=== PATIENT | male | born 1995 | race Caucasian/White ===

== ENCOUNTER 2017-03-21 02:29 | Inpatient (IN) | payer OTHER ==
[~2017-03-21] VITALS: Ht 180.3 cm; Wt 77.1 kg
[~2017-03-21 02:29] MED LIST: CHOL10005 PO; MIRT-17 PO; MULT-1379 PO; NIC10R INH; OMEG1CAP35 PO; VENL75CA58 PO
[2017-03-21] MEDS ORDERED: ACETAMINOPHEN 325 MG TAB PO PRN (03:05)
[2017-03-21] MEDS ORDERED: MAG HYD/AL HYD/SIMETH 30ML UDC PO PRN (03:05)
[2017-03-21 03:38] VITALS: BP 133/92
[2017-03-21] MEDS: MULTIVITAMINS TAB PO SCH (08:14)
--- NOTE | 2017-03-21 12:18 | BHS - Psychiatric Evaluation ---
ER - Title 25 MHE Evaluation Title 25 Evaluation Patient Detained By: Physician (Dr. Harris), Law Enforcement (Kacy Horne) Referral Source: Professional: Law Enforcement and Physician Date Patient Detained: Mar 21, 2017 Time Patient Detained: 00:00 Date Nursing Home Expires: Mar 25, 2017 Time Nursing Home Expires: 00:00 Legal Status: Police Hold: No Legal Status: Residence: County Resident, State Resident Assessment Data Provided By: Patient, Law Enforcement (), Other Source HPI/ROS: From ER Dr. Harris, "21-year-old male with a past medical history of suicidal ideations. Presents to the emergency Department per law enforcement for suicidal ideations. He was stating to his girlfriend that he wanted to go to [place] and get a gun and kill himself. He also had texted her the same message. The police read the text and he definitely has a plan with intent." Admit due to SI or Attempt: Yes Suicide Plan: Has Plan w/out Access Current Suicide Plan Says he plans to try to get a gun from a 3rd republican seller, since he believes he may be prohibited from getting a gun easily. "I will get a gun from someone who doesn't do background checks." Alcohol or Drugs Involved: No Is Patient Info Reliable: Yes (Patient indicates he is still suicdial, "Says I would not try to kill myself in here ([facility]) but will get a gun from a third republican seller.") Is Collateral Info Reliable: Yes () Current Home Psych Meds: Reports none Mental Status Exam General Appearance: Casual, Well Groomed, Good Eye Contact, Cooperative Speech: Clear, Spontaneous, Normal Rate, Other ([id number] when speaking about his suicidal plan.) Mood: Other (No apparent emotion.) Affect: Flat (Extremely flat or laughs ) Thought Process: Organized, Logical, Goal Directed Thought Content: Suicidal Ideation (All family and friends know he tries to obtain a gun to kill himself.) Sensorium: Clear Cognition: Alert & Oriented-Person Memory: Immediate, Recent, Remote Insight Judgment: Poor Hallucinations: Denies Delusions: Denies Current Risk & History Current Dangerous Risk Assessm: Current Suicide Ideation Past Dangerous Risk Assessm: Suicide Ideation-last 6mo (Was hospitalized in December 2016) Sequelae of Substance Abuse: Patient says he has used LSD and other drugs such as cannabis and marijuana infrequently. Previous Suicide Attempt: Past - Low Lethality Number of Attempts/Description At least two attempts, one by mixing prescription medications and alcohol, and another by drinking another mold sheet cleaner and bleach. Previous Psychiatric Illness: Yes (Hospitalized at [facility] for suicidal plan) Previous Psychiatric Treatment: Yes Risk Assessment & Disposition Evaluated Risk Assessment: Patient mother and family have all heard him express suicidal plans. Patient mother has heard him say he hates his job, she says, "because of that I worry if he might try to hurt people at his job ([employer]) or he has said he will turn off his car lights and drive until he hits someone else," in a fatal accident. Patient has no outpatient clinical support and his mother, brother, and workplace client service and consulting manager all experience him as highly suicidal. As well patient says he plans to kill himself. Meets Mental Illness Req.: Yes Meets Dangerousness Req.: Yes Emergency Nursing Home to be: Upheld Decision Comment: Patient mother and family have all heard him express suicidal plans. Patient mother has heard him say he hates his job, she says, "because of that I worry if he might try to hurt people at his job ([employer]) or he has said he will turn off his car lights and drive until he hits someone else," in a fatal accident. Patient has no outpatient clinical support and his mother, brother, and workplace client service and consulting manager all experience him as highly suicidal. As well patient says he plans to kill himself. Patient says he is intent on killing himself. He has texted family members while in the ER saying once he is released from [facility] he will kill himself. Date of Decision: Mar 21, 2017 Time of Decision: 12:24 Patient is Medically Stable at: Yes Disposition: [facility] DENNYS ARELLANO LPC Mar 21, 2017 12:18
[2017-03-21] MEDS ORDERED: OLANZapine 10 MG VIAL IM ONLY PRN (12:40)
[2017-03-21] MEDS ORDERED: WATER STERILE 10 ML VIAL IM ONLY PRN (12:40)
[2017-03-21] MEDS ORDERED: diphenhydrAMINE 50 MG/ML VIAL IM PRN (12:40)
[2017-03-21] MEDS ORDERED: LORazepam 2 MG/ML VIAL IM PRN (12:40)
[2017-03-21] MEDS ORDERED: WATER STERILE 10 ML VIAL IVP PRN (12:40)
[2017-03-21 12:55] VITALS: BP 130/81
[2017-03-21] MEDS ORDERED: INFLUENZA VIRUS VAC 0.5 ML SYR IM ONLY ONE (15:15)
[2017-03-21 22:06] VITALS: BP 121/73
[2017-03-22 06:17] VITALS: BP 121/67
[2017-03-22] MEDS: MULTIVITAMINS TAB PO SCH (08:27)
--- NOTE | 2017-03-22 11:00 | BHS Progress Note ---
BHS - Subjective Progress Notes Subjective Patient smiling, while talking of dark subject manner, including suicide. Patient interacting in a manner consistent with personality disorder with strong borderline traits. Patient cynical and sarcastic. Argumentative with this provider, apparently for the sake of arguing, "I don't need saving" "I am fine". "I am not depressed" "I am pissed, that is all." Will plan for 10 day hearing. Patient reading borderline criteria, and stating he fits all of them except one. Patient stating "You are a terrible doctor", and patient states he would exit, and likely remain the same, concerning his suicidality. Suicidal Ideation: Ongoing Homicidal Ideation: None BHS - Objective Physical Exam Vital Signs Vital Signs Date Time Temp Pulse Resp B/P (MAP) Pulse Ox O2 Delivery O2 Flow Rate FiO2 03/22/17 06:17 99.9 83 16 121/67 (85) 96 Room Air Muscle Strength and Tone: WNL Gait and Station: Steady BHS Medications Reviewed: Side Effects, Benefits of Medication, Risks Allergies Reviewed: Yes Mental Status Exam General Appearance: Casual, Well Groomed, Good Eye Contact, Cooperative, No Psychomotor Agitation (minimal) Speech: Clear, Spontaneous, Normal Rate, Normal Rhythm, Normal Volume, Normal Tone, Other ([id number] when speaking about his suicidal plan.) Mood: Dysthmic/Depressed (mood low with incongruent affect, ) Affect: Full and Appropriate (incongruent affect. ), Flat (Extremely flat or laughs ) Thought Process: Organized, Logical, Goal Directed, No Loose Associations, No Flight of Ideas Thought Content: Suicidal Ideation (All family and friends know he tries to obtain a gun to kill himself. "western culture is afraid of "), No Homicidal Ideation, No Delusions, No Auditory Halllucinations, No Visual Hallucinations, No Thought Broadcasting, No Ideas of Reference, No Obsessions, No Compulsions Sensorium: Clear Cognition: Alert & Oriented-Person, Alert & Oriented-Place, Alert & Oriented- Time, Njnpm-Nnoejhiz-Apphqhiml Memory: Immediate, Recent, Remote Intelligence: Average Insight Judgment: Poor BHS Assessment and Plan BHS Plan: Necessary Precautions, Individual/Group Therapy, Admin/Titrate Meds, Educate Patient Tobacco Medications: Not Appropriate Condition Problems: (1) Borderline personality disorder Status: Chronic Assessment & Plan: provisional diagnosis. (2) Persistent depressive disorder Condition 1. continue treatment. 2. 10 day hearing to be scheduled. MANUEL ESTEVES MD Mar 22, 2017 11:00
--- NOTE | 2017-03-22 11:35 | BHS - Psychiatric Evaluation ---
Title 25 Evaluation Hearing Report: 109 Date of Report: Mar 22, 2017 Examiner: Myah Arellano [facility] Patient Detained By: Physician (Dr. Harris), Law Enforcement (Kacy Horne) 24hr Mental Health Eval By: Myah Arellano M[facility] L[facility] Date Patient Detained: Mar 21, 2017 Time Patient Detained: 00:00 Date Senior Care Expires: Mar 25, 2017 Time Senior Care Expires: 00:00 Legal Status: Police Hold: No Legal Status: Relationship: Single Legal Status: Residence: [facility] Resident, State Resident Referral Source: Professional: Law Enforcement and Physician Assessment Data Provided By: Patient, Law Enforcement (), Other Source Chief Complaint: Patient continues to express suicidal plan and says he does not value his life, and believes western culture overvalues life and fears . He says he plans to buy a gun from a third green party seller to end his life. HPI/ROS: From ER Dr. Harris, "21-year-old male with a past medical history of suicidal ideations. Presents to the emergency Department per law enforcement for suicidal ideations. He was stating to his girlfriend that he wanted to go to [place] and get a gun and kill himself. He also had texted her the same message. The police read the text and he definitely has a plan with intent." Reliability of Pt-Evidenced By Patient is a reliable historian, says he will kill himself upon release. Current Dangerous Risk Assess: Current Suicide Ideation (Patient says he will kill himself with a gun. This is his most durable plan. Patient mother says she fears he may harm others at his job or driving if he attempts at work on the highway, as he has indicated.) Current Risk Summary: Patient mother and family have all heard him express suicidal plans. Patient mother has heard him say he hates his job, she says, "because of that I worry if he might try to hurt people at his job ([employer]) or he has said he will turn off his car lights and drive until he hits someone else," in a fatal accident. Patient has no outpatient clinical support and his mother, brother, and workplace care transitions manager all experience him as highly suicidal. As well patient says he plans to kill himself. Patient says he is intent on killing himself. He has texted family members while in the ER saying once he is released from [facility] he will kill himself. He says he is wanting to go through "a third green party seller " and obtain a gun to kill himself. He sees no outpatient therapist. He says he would like to lose his job, and believes if he killed his girlfriend would be better off without him. Past Dangerous Risk Assess: Suicide Ideation-last 6mo (Was hospitalized in December 2016) [facility] - Exam Physical Exam Vital Signs Vital Signs 03/22/17 06:17 Temp 99.9 Pulse 83 Resp 16 B/P (MAP) 121/67 (85) Pulse Ox 96 O2 Delivery Room Air Mental Status Exam General Appearance: Casual, Well Groomed, Good Eye Contact, Cooperative Speech: Clear, Spontaneous, Normal Rate, Other (Usshrk-ij-[id number] when speaking about his suicidal plan.) Mood: Other (No apparent emotion.) Affect: Flat (Extremely flat or smiles inappropriately.) Thought Process: Organized, Logical, Goal Directed Thought Content: Suicidal Ideation (All family and friends know he tries to obtain a gun to kill himself.) Sensorium: Clear Cognition: Alert & Oriented-Person Memory: Immediate, Recent, Remote Insight Judgment: Poor Title 25 History Psychiatric History: Per Dr. Navarro from patient electronic record and [facility] stay in December 2016, "When asked about depressive symptoms, patient reported "the smallest things happen and I get depressed." He gives an example of at work at [employer] accidentally dropping a jar of liquid and having to clean it up on the floor. When asked about specific depressive symptoms patient reports he has probably lost some weight, mainly because he does not eat right. He does report some guilt and remorse about stressing the family when he verbalizes his suicidal thoughts to them. Patient reports his energy is down. Concentration remains okay. Continues to have interest in video games. Patient reports he does not think he snores a lot and does not think he has sleep apnea, which was later ruled out on the unit. He does report nightmares at times, nonspecific in nature and not related to actual events, and he currently reports his mood is an 8/10 during initial interview with 10 being good. Regarding symptoms of amari, patient denies any symptoms that would constitute a manic episode. In regard to poor sleep in the past he reports that he and his friends have tried to stay up late in the past intentionally. Patient reports he can be a worrywart at times, but he does not seem to be suffering from primary anxiety disorder. He denies any periods of psychosis, panic attacks, PTSD. Patient does not like being around large bodies of water, but it falls short of a phobia. Denies anorexia, bulimia or OCD behavior, and patient reports he used to cut on his legs and chest as a form of "punishment." He quit that upon exiting high school. Patient now reports burning himself with cigarettes a few days ago prior to admission for the same reason. Patient admits to somatization symptoms in the form of diarrhea and stomach pains when he gets under stress. Patient reports being an inpatient briefly in [facility] for psychiatric concerns briefly in the past. He has tried outpatient treatment now three times, and the patient reports it has not been helpful in the patient and he is verbalizing that he does not expect it will be helpful now. Patient seems to not have much interest in pursuing mental health treatment on his own accord, but allows it to weigh heavily on his friends and family." Family Psychiatric Hx: Patients said his brother has suffered from depression as well and his age is 21. This is a half brother. Patient does not know his biological father's side of the family. Social History: Per Dr. Navarro from patient electronic record and [facility] stay in December2016, "Patient was born in [place], raised there. Parents were not together at the time of his . Stepfather entered the picture in about 2011. Patient reports he can kind of be a "rosina." Patient has one half sibling who is two years older. Patient himself states he graduated from high school, has never been in the . He has been in what the patient reports as a two-year relationship with significant other. They live together and are planning on a wedding in the next one to two years. The patient has been working at night in [employer] since July. He is somewhat disinterested in his job overall. The patient denies any outright extensive abuse or neglect when growing up, but says he witnessed a lot of fighting where his mother was crying a lot when he was young." Prior Hospitalizations: Patient was last hospitalized at [facility] in December of this year. Patient reports being in inpatient briefly in [facility] for psychiatric concerns briefly in the past. Drug & Alcohol Use: Patient reports using some substances including marijuana in school. Drinks energy drinks at times. Denies any substance use now. Acknowledges LSD use in the past. Current Living Situation: Patient lives in [place], and worries about his rent being late. He reports living on limited finances. Current Support System: Patient mother, "brother," and girl friend all express care for patient, and concern about his safety. Education: Patient himself states he graduated from high school, has never been in the . Patient Strengths: Patient enjoys interpersonal interaction. It is expressed in high level of argumentation that he prolongs. Relevant Medications: Patient discontinued psychotropics after one week of use prescribed to him for mood stabilization the last time he was hospitalized in December of this year. Assessment and Plan Course of Care: Course of care will be consistent with providing a secure environment for a destabilized patient. He will be provided with intensive assessment, therapy, and case management. Diagnostic Impressions: Persisting depressive disorder. Dependent and borderline personality traits. Rule out personality disorder. Social stressors associated with illness. Assessment and Plan: This is a 21-year-old male patient demonstrates both dependent and borderline personality traits to a high degree. These maladaptive coping mechanisms combined with persistent depressive mood and suicidal plans create a resistance to treatment and an entrenched difficulty in accepting support. All efforts will be made to stabilize patient and create a different plan than patient's stated intention, "to leave and do it (take his life)." Risk Formulation: The patient "evidences a substantial probability of physical harm to self as manifested by evidence of recent threats of/or attempts at suicide or serious bodily harm" as evidenced by:Patient mother and family have all heard him express suicidal plans. Patient mother has heard him say he hates his job, she says, "because of that I worry if he might try to hurt people at his job ( [employer]) or he has said he will turn off his car lights and drive until he hits someone else," in a fatal accident. Patient has no outpatient clinical support and his mother, brother, and workplace care transitions manager all experience him as highly suicidal. As well, patient says he plans to kill himself. Patient says he is intent on killing himself. He has texted family members while in the ER saying once he is released from [facility] he will kill himself. He says he is wanting to go through "a third green party seller" and obtain a gun to kill himself. He sees no outpatient therapist. He says he would like to lose his job, and believes if he killed his girlfriend would be better off without him. Patient mother says he has a long history of suicide attempts. She says his ideation has worsened and she is most concerned because he no longer expresses them to her. She worries he is keeping them to himself and reaching out for support less and less. Recommendations of [facility] Team: It is therefore recommended by the Behavioral Health Services Team:Patient, Geraldo Reagan, stay the full duration of his 72 hour hold and may additionally recommend up to 10 days for stabilization at [facility]/COUNTS INCLUDE 234 BEDS AT THE [facility]. , MYAH ARELLANO HAND TIER Mar 22, 2017 10:54
[2017-03-22 13:42] VITALS: BP 128/80
[2017-03-22] MEDS: VENLAFAXINE XR 75 MG CAPCR PO SCH (13:42)
[2017-03-22] MEDS: MIRTAZAPINE 15 MG TAB PO SCH (21:17)
[2017-03-22 21:20] VITALS: BP 135/91
--- NOTE | 2017-03-23 04:35 | MENTAL HEALTH H&P ---
ADMISSION DATE: March 21, 2017 ATTENDING PROVIDER Iram Rivera NP PRESENTING PROBLEM, CHIEF COMPLAINT "My previous ankle surgery couldn't outrun the police. I was going to go somewhere, buy a gun and kill myself. I texted my girlfriend that I was going to do this, and she told me I needed to go to the transitions manager's office at work. My transitions manager set up a sting operation, and the cinder crane operator came and detained me. I don't think my life in general holds any value." HISTORY OF PRESENT ILLNESS This is a 21-year-old male that presented to the emergency department with law enforcement due to suicidal ideation. He had texted his girlfriend that he wanted to go to [place] and get a gun and kill himself. The police read the text and stated he had a plan with intent. Patient with history of two prior inpatient psychiatric hospitalizations, [place] [facility] [place], [place], when this patient was sent by [facility] due to his brother and mother being concerned for his safety, as patient reported he had tried to kill himself with his fiance's rifle, and that she had to stop him from doing this. Patient had started therapy at [facility], and with previous discharge recommendations, he was to follow up with individual counseling and also was started on Remeron and Effexor, although patient reports he self discontinued these after taking two weeks. Patient is currently denying benefit from counseling. He declines option of medication management. He reports that he has had suicidal ideation starting at age 8. He is currently rating his depression a 1 on a 1 to 10 scale , although reports ongoing suicidal ideation with plans to purchase a gun and shoot himself. He is rating his anger a 9 due to current emergency jail. He is rating his anxiety a 3. 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 His sleep is good. He reports that he does have mood swings. He denies behavioral outbursts. He reports that he self harms in the form of burning himself with cigarettes. Last self harm behavior was two days ago, last cutting behavior two weeks ago. This started in the eighth grade. Patient reports that he saw Maria A at [facility] for approximately one month following his last discharge, although denied benefit and quit attending sessions. He denies use of alcohol, reports last marijuana use approximately two months ago, stating he used this regularly for approximately one year during high school. He reports low energy and low appetite. 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 He texted her he was going to purchase a gun and shoot himself. He was sent to the transitions manager's office. Police were called, and he was emergency detained. Patient was seen and transferred to the behavioral health unit for further evaluation and treatment. MENTAL HEALTH HISTORY Patient has [place] previous inpatient [place] [facility] [place]. He also attended some therapy sessions at [facility]. He more recently had an inpatient behavioral health admission December of 2016, at which time he was discharged to follow up with [facility] and prescribed Remeron and Effexor, of which he reports he quit use after two weeks. He reports two previous suicide attempts, the most recent being last year, in which he poured narcotics into a bowl and then Wade Jeremias on top. He denies being hospitalized after this event. He reports a previous suicide attempt where he drank Kavam.comield fluid and bleach. He denies being hospitalized for this event. Self harm behaviors including cutting and self burning with the most recent behavior two days prior to admission. FAMILY PSYCHIATRIC HISTORY Mother and brother with depression. He reports two distant cousins that completed suicide as well as two friends who have completed suicide. PAST MEDICAL HISTORY Left ankle fracture with repair in September of 2015. No known drug allergies. SOCIAL HISTORY Patient was born and raised in [place], [place]. Parents were not at the time of his . Stepfather entered his life in about 2011, reports poor relationship with him, reporting him as an abusive alcoholic. He states he does not know his biological father. He has a fair relationship with his mother. He has the same girlfriend of two years. He is currently living with her in a mobile home. His mother lives in [place] and works at the [employer] in [place]. 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 He has been employed there since July of 2016. He dropped out of high school, and then went back and graduated in 2015. He has one half sibling who is two years older. He denies history of physical, emotional or sexual abuse. LEGAL HISTORY Unremarkable. SUBSTANCE ABUSE HISTORY Patient denies use of alcohol. He reports that he smoked marijuana for approximately one year during his high school years. He quit use and reports did smoke two months prior to this admission. He has tried LSD on one occasion. He drinks approximately 6 energy drinks per week. PHYSICAL EXAMINATION Please see emergency room note for physical exam. Vital signs at the time of admission: Temperature 98.1, pulse 66, blood pressure 133/92, pulse oximetry 97 % on room air. LABORATORY DATA CBC within normal limits. RBC 6.21, hemoglobin 18.3, hematocrit 53.4, neutrophil percent 73.9, lymphocyte percent 16. Chemistry panel within normal limits. Carbon dioxide 21, total protein 8.4, thyroid stimulating hormone pending. Urine screen within normal limits. Toxicology includes salicylate, acetaminophen. Serum alcohol level is less than 10. Urine screen negative for opiates, barbiturates, tricyclics, phencyclidine, amphetamines, benzodiazepines , cocaine and cannabinoids. MENTAL STATUS EXAMINATION GENERAL APPEARANCE, BEHAVIOR AND ATTITUDE: This is a calm, cooperative 21-year- old male making fair eye contact at time of initial interview. No periods of tearfulness. No bizarre mannerisms or tics. He is reporting ongoing suicidal ideation. SPEECH: Regular rate, rhythm, volume and tone. MOOD: Described as angry. AFFECT: Incongruent. He is smiling throughout much of the interview. THOUGHT PROCESSES: Overall logical, goal-directed. No loose associations or flight of ideas. THOUGHT CONTENT: Free of auditory or visual hallucinations, ideas of reference , thought broadcastings, delusions, obsessions or compulsions. Patient admitting to ongoing suicidal ideation, denies homicidal ideation. SENSORIUM: Clear. COGNITION: Alert and oriented to person, place, time and situation. MEMORY: Immediate, recent and remote estimated intact. INTELLIGENCE: Average, based on interview. INSIGHT AND JUDGMENT: Considered poor. Patient reporting that his life in general has no value. Denies benefit from psychotherapy, declines medication management options. ASSESSMENT This is a 21-year-old male who was previously on the behavioral health unit December of 2016, at which time he was recommended to follow up with individual counseling and medication management. he was discharged on Effexor and Remeron, which he reports he self discontinued two weeks after taking. He is currently denying benefit from therapy, declining option of medication management, and reporting ongoing suicidal ideation. He had the intent to purchase a firearm and shoot himself. He reports he sees no value to life in general and denies having a problem with . He denies homicidal ideation. He also engages in self harm behaviors including cutting and burning self, which he reports two days prior to admission. He reports sporadic use of marijuana, denies use of other illicit drugs, denies use of alcohol. He is currently on an emergency jail after he texted his girlfriend about plans to purchase the gun and shoot himself. We will continue to evaluate and maintain safety precautions. DIAGNOSES PER DSM-V Major depressive disorder, recurrent, moderate to severe. Borderline personality traits. Rule out personality disorder. PLAN * Will admit to the unit. * Necessary precautions will be implemented. * Individual and group therapy to be initiated. * Medications to be considered. Patient is declining medication management options at present time. * Ongoing labs as appropriate. * Continue to obtain collateral information. * Estimated length of stay unknown at present time. [facility]
[2017-03-23 06:20] VITALS: BP 121/86
[2017-03-23] MEDS: VENLAFAXINE XR 75 MG CAPCR PO SCH (08:26)
[2017-03-23] MEDS: MULTIVITAMINS TAB PO SCH (08:27)
[2017-03-23 13:05] VITALS: BP 129/76
--- NOTE | 2017-03-23 13:30 | BHS Progress Note ---
BHS - Subjective Progress Notes Subjective Patient interacting in a positive manner today with this provider, states he has decided to take an active role in his treatment, and demonstrating that he is in fact doing so. Patient likely suffering from borderline personality disorder, and states he wants to attend DBT group, as an outpatient. Patient was notably less defensive today, and opened to discussion about his future. Will have meeting with family members and will have court hearing tomorrow for 10 day stay. Patient continues to talk about past negative reflections regarding childhood. Will continue current medications as prescribed. Suicidal Ideation: Resolving Homicidal Ideation: None BHS - Objective Physical Exam Vital Signs Vital Signs Date Time Temp Pulse Resp B/P (MAP) Pulse Ox O2 Delivery O2 Flow Rate FiO2 03/23/17 13:05 98.9 72 129/76 (93) 96 Room Air 03/23/17 06:20 16 Muscle Strength and Tone: WNL Gait and Station: Steady [facility] Medications Reviewed: Side Effects, Benefits of Medication, Risks Allergies Reviewed: Yes Mental Status Exam General Appearance: Casual, Well Groomed, Good Eye Contact, Cooperative, Polite , Good Interaction, No Tearful, No Psychomotor Agitation, No Psychomotor Retardation, Bizarre Mannerisms, Tics Speech: Clear, Spontaneous, Normal Rate, Normal Volume, Normal Tone Mood: Dysthmic/Depressed (some improvement. ) Affect: Full and Appropriate, Calm, No Flat, No Withdrawn, No Tearful, No Anxious, No Agitated Thought Process: Organized, Logical, Goal Directed Thought Content: Suicidal Ideation (All family and friends know he tries to obtain a gun to kill himself.), No Homicidal Ideation, No Delusions, No Auditory Halllucinations, No Visual Hallucinations, No Thought Broadcasting, No Ideas of Reference, No Obsessions, No Compulsions Sensorium: Clear Cognition: Alert & Oriented-Person, Alert & Oriented-Place, Alert & Oriented- Time, Enfhi-Nbaqqyww-Qvewutsji Memory: Immediate, Recent, Remote Intelligence: Average Insight Judgment: Poor (maladaptive stress coping mechanisms present. ) S Assessment and Plan [facility] Plan: Necessary Precautions, Individual/Group Therapy, Admin/Titrate Meds, Educate Patient Tobacco Medications: Not Appropriate Condition Problems: (1) Borderline personality disorder Status: Chronic Assessment & Plan: provisional diagnosis. (2) Persistent depressive disorder Status: Chronic Condition 1. continue treatment. 2. hearing tomorrow for 10 day extension. 3. no medication changes. MANUEL ESTEVES MD Mar 23, 2017 13:30
[2017-03-23] MEDS: MIRTAZAPINE 15 MG TAB PO SCH (20:33)
[2017-03-23 20:35] VITALS: BP 139/84
[2017-03-24 05:15] VITALS: BP 137/86
[2017-03-24] MEDS: VENLAFAXINE XR 75 MG CAPCR PO SCH (08:09)
[2017-03-24] MEDS: MULTIVITAMINS TAB PO SCH (08:09)
--- NOTE | 2017-03-24 11:38 | BHS Progress Note ---
BHS - Subjective Progress Notes Subjective Patient interacting well today with treatment team staff, fiance, and brother in room. Patient verbalizes a desire to continue treatment, with primary focus on borderline traits. Appetite and sleep good, no other concerns today. No para-suicidal behaviors on the unit. Patient does appear to be taking an active role in his treatment at this time. Suicidal Ideation: None Homicidal Ideation: None BHS - Objective Physical Exam Vital Signs Vital Signs Date Time Temp Pulse Resp B/P (MAP) Pulse Ox O2 Delivery O2 Flow Rate FiO2 03/24/17 05:15 98.1 79 137/86 (103) 97 Room Air 03/23/17 06:20 16 Muscle Strength and Tone: WNL Gait and Station: Steady [facility] Medications Reviewed: Side Effects, Benefits of Medication, Risks Allergies Reviewed: Yes Mental Status Exam General Appearance: Casual, Well Groomed, Good Eye Contact, Cooperative, Polite , Good Interaction, No Tearful, No Psychomotor Agitation, No Psychomotor Retardation, Bizarre Mannerisms, Tics Speech: Clear, Spontaneous, Normal Rate, Normal Rhythm, Normal Volume, Normal Tone Mood: Dysthmic/Depressed (improving) Affect: Full and Appropriate, Calm, No Flat, No Withdrawn, No Tearful, No Anxious, No Agitated Thought Process: Organized, Logical, Goal Directed, No Loose Associations, No Flight of Ideas Thought Content: Suicidal Ideation (All family and friends know he tries to obtain a gun to kill himself.), No Homicidal Ideation, No Delusions, No Auditory Halllucinations, No Visual Hallucinations, No Thought Broadcasting, No Ideas of Reference, No Obsessions, No Compulsions Sensorium: Clear Cognition: Alert & Oriented-Person, Alert & Oriented-Place, Alert & Oriented- Time, Tkegw-Uufhmzqp-Ypcymdkxq Memory: Immediate, Recent, Remote Intelligence: Average Insight Judgment: Poor (maladaptive stress coping mechanisms present, associated with borderline personality ) [facility] Assessment and Plan [facility] Plan: Necessary Precautions, Individual/Group Therapy, Admin/Titrate Meds, Educate Patient Tobacco Medications: Not Appropriate Condition Problems: (1) Borderline personality disorder Status: Chronic Assessment & Plan: provisional diagnosis. (2) Persistent depressive disorder Status: Chronic Condition 1. continue treatment. 2. patient noted to wave 10 day hearing. MANUEL ESTEVES MD Mar 24, 2017 11:38
[2017-03-24 13:57] VITALS: BP 134/85
[2017-03-24] MEDS: MIRTAZAPINE 15 MG TAB PO SCH (20:58)
[2017-03-24 21:16] VITALS: BP 138/88
[2017-03-25] MEDS: MULTIVITAMINS TAB PO SCH (08:14)
[2017-03-25] MEDS: VENLAFAXINE XR 75 MG CAPCR PO SCH (08:14)
--- NOTE | 2017-03-25 11:38 | BHS Progress Note ---
BHS - Subjective Progress Notes Subjective Patient's interaction with this provider, continue to improve. Patient maintaining a cynical View of life in general , but is noted to be taking a much more active role in his treatment. Patient cooperative, and does report a positive response to current medications. Appetite and sleep good, will continue treatment, with emphasis on recognizing/overcoming cluster B personality symptomatology that is present in this patient that does possess a strong intellect. Suicidal Ideation: None Homicidal Ideation: None S - Objective Physical Exam Vital Signs Vital Signs Date Time Temp Pulse Resp B/P (MAP) Pulse Ox O2 Delivery O2 Flow Rate FiO2 03/24/17 21:16 97.9 76 138/88 (105) 97 Room Air 03/23/17 06:20 16 Muscle Strength and Tone: WNL Gait and Station: Steady [facility] Medications Reviewed: Side Effects, Benefits of Medication, Risks Allergies Reviewed: Yes Mental Status Exam General Appearance: Casual, Well Groomed, Good Eye Contact, Cooperative, Polite , Good Interaction, No Tearful, No Psychomotor Agitation, No Psychomotor Retardation, No Bizarre Mannerisms, No Tics Speech: Clear, Spontaneous, Normal Rate, Normal Rhythm, Normal Volume, Normal Tone Mood: Dysthmic/Depressed (improving) Affect: Full and Appropriate, Calm, No Flat, No Withdrawn, No Tearful, No Anxious, No Agitated Thought Process: Organized, Logical, Goal Directed, No Loose Associations, No Flight of Ideas Thought Content: Suicidal Ideation (resolving), No Homicidal Ideation, No Delusions, No Auditory Halllucinations, No Visual Hallucinations, No Thought Broadcasting, No Ideas of Reference, No Obsessions, No Compulsions Sensorium: Clear Cognition: Alert & Oriented-Person, Alert & Oriented-Place, Alert & Oriented- Time, Ogtoq-Fyrkcowd-Hongarbnz Memory: Immediate, Recent, Remote Intelligence: Average Insight Judgment: Poor (maladaptive stress coping mechanisms present, associated with borderline personality ) [facility] Assessment and Plan [facility] Plan: Necessary Precautions, Individual/Group Therapy, Admin/Titrate Meds, Educate Patient Tobacco Medications: Not Appropriate Condition Problems: (1) Borderline personality disorder Status: Chronic Assessment & Plan: provisional diagnosis. (2) Persistent depressive disorder Status: Chronic Condition 1. continue treatment, focus on recognizing/overcoming cluster B symptomatology 2. no medication changes. MANUEL ESTEVES MD Mar 25, 2017 11:38
[2017-03-25 13:53] VITALS: BP 131/74
[2017-03-25 19:15] VITALS: BP 136/86
[2017-03-25] MEDS: MIRTAZAPINE 15 MG TAB PO SCH (21:14)
[2017-03-26 05:01] VITALS: BP 132/81
[2017-03-26] MEDS: MULTIVITAMINS TAB PO SCH (08:21)
[2017-03-26] MEDS: VENLAFAXINE XR 75 MG CAPCR PO SCH (08:21)
[2017-03-26 11:37] VITALS: BP 118/98
--- NOTE | 2017-03-26 12:34 | BHS Progress Note ---
S - Subjective Progress Notes Subjective Patient noted to be interacting well with his mother, girlfriend, and brother today, as well as appears to be putting effort into taking an active role in his treatment. Patient focusing on therapy to overcome Cluster B behaviors, and states medications do seem to be helping. Appetite and sleep good, will look at discharge potentially on Wednesday. No other concerns today, no para-suicidal ideation, cooperative, and no other concerns today. Suicidal Ideation: None Homicidal Ideation: None S - Objective Physical Exam Vital Signs Vital Signs Date Time Temp Pulse Resp B/P (MAP) Pulse Ox O2 Delivery O2 Flow Rate FiO2 03/26/17 05:01 97.7 61 132/81 (98) 95 Room Air 03/23/17 06:20 16 Muscle Strength and Tone: WNL Gait and Station: Steady [facility] Medications Reviewed: Side Effects, Benefits of Medication, Risks Allergies Reviewed: Yes Mental Status Exam General Appearance: Casual, Well Groomed, Good Eye Contact, Cooperative, Polite , Good Interaction, No Tearful, No Psychomotor Agitation, No Psychomotor Retardation, No Bizarre Mannerisms, No Tics Speech: Clear, Spontaneous, Normal Rate, Normal Rhythm, Normal Volume, Normal Tone Mood: Dysthmic/Depressed (improving) Affect: Full and Appropriate, Calm, No Flat, No Withdrawn, No Tearful, No Anxious, No Agitated Thought Process: Organized, Logical, Goal Directed, No Loose Associations, No Flight of Ideas Thought Content: No Suicidal Ideation, No Homicidal Ideation, No Delusions, No Auditory Halllucinations, No Visual Hallucinations, No Thought Broadcasting, No Ideas of Reference, No Obsessions, No Compulsions Sensorium: Clear Cognition: Alert & Oriented-Person, Alert & Oriented-Place, Alert & Oriented- Time, Jbvog-Wgcaecmt-Osporjjbs Memory: Immediate, Recent, Remote Intelligence: Average Insight Judgment: Poor (maladaptive stress coping mechanisms present, associated with borderline personality traits verses disorder. ) [facility] Assessment and Plan [facility] Plan: Necessary Precautions, Individual/Group Therapy, Admin/Titrate Meds, Educate Patient Tobacco Medications: Not Appropriate Condition Problems: (1) Borderline personality disorder Status: Chronic (2) Persistent depressive disorder Status: Chronic Condition 1.continue treatment. 2. possible discharge over the weekend. MANUEL ESTEVES MD Mar 26, 2017 12:34
[2017-03-26 15:10] VITALS: BP 141/91
[2017-03-26] MEDS: MIRTAZAPINE 15 MG TAB PO SCH (21:08)
[2017-03-27 06:38] VITALS: BP 108/80
[2017-03-27] MEDS: VENLAFAXINE XR 75 MG CAPCR PO SCH (08:09)
[2017-03-27] MEDS: MULTIVITAMINS TAB PO SCH (08:09)
[2017-03-27 13:18] VITALS: BP 142/77
--- NOTE | 2017-03-27 15:13 | BHS Progress Note ---
BHS - Subjective Progress Notes Subjective Pt seen with staff. Pt denies SI today, says his depression is about a 5/10. Pt making progress learning about his diagnosis, says "With BPD the therapy and the group therapy are really important, right?" We discussed interpersonal reactivity, also role of antidepressant in helping to minimize the dysphoria of BPD. 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 I suggested we try him off remeron tonight, and see if he sleeps ok without it.... might be simpler to manage depression with effexor alone. Tentative discharge tomorrow if he remains free of SI and if mood improves a bit. Suicidal Ideation: None Homicidal Ideation: None S - Objective Physical Exam Vital Signs Vital Signs 03/27/17 13:18 Temp 99.8 Pulse 89 Resp 16 B/P (MAP) 142/77 (98) Pulse Ox 96 O2 Delivery Room Air Muscle Strength and Tone: WNL Gait and Station: Steady [facility] Medications Reviewed: Side Effects, Benefits of Medication, Risks Allergies Reviewed: Yes Mental Status Exam General Appearance: Casual, Well Groomed, Good Eye Contact, Cooperative, Polite , Good Interaction, No Tearful, No Psychomotor Agitation, No Psychomotor Retardation, No Bizarre Mannerisms, No Tics Speech: Clear, Spontaneous, Normal Rate, Normal Rhythm, Normal Volume, Normal Tone Mood: Dysthmic/Depressed (improving) Affect: Full and Appropriate, Calm, No Flat, No Withdrawn, No Tearful, No Anxious, No Agitated Thought Process: Organized, Logical, Goal Directed, No Loose Associations, No Flight of Ideas Thought Content: No Suicidal Ideation, No Homicidal Ideation, No Delusions, No Auditory Halllucinations, No Visual Hallucinations, No Thought Broadcasting, No Ideas of Reference, No Obsessions, No Compulsions Sensorium: Clear Cognition: Alert & Oriented-Person, Alert & Oriented-Place, Alert & Oriented- Time, Aibgt-Hmwzpcwz-Zgaxvtdlg Memory: Immediate, Recent, Remote Intelligence: Average Insight Judgment: Poor (maladaptive stress coping mechanisms present, associated with borderline personality traits verses disorder. ) [facility] Assessment and Plan [facility] Plan: Necessary Precautions, Individual/Group Therapy, Admin/Titrate Meds, Educate Patient Tobacco Medications: Not Appropriate Condition Problems: POONAM KHAN MD Mar 27, 2017 15:13
[2017-03-28] MEDS: MULTIVITAMINS TAB PO SCH (08:11)
[2017-03-28] MEDS: VENLAFAXINE XR 75 MG CAPCR PO SCH (08:11)
[2017-03-28] MEDS ORDERED: VENL75CA58 PO (10:22)
[2017-03-28] MEDS ORDERED: MULT-1335 PO (10:22)
--- NOTE | 2017-05-27 08:40 | [facility] Discharge Summary ---
[facility] Discharge Summary [id number] Encounter Date: Mar 28, 2017 [id number] Encounter Time: 09:00 Reason-Hosp/Final Diag (DSM-V): (1) Persistent depressive disorder Status: Chronic Hospital Course & Plan: Pt was admitted to [facility] and maintained on suicide precautions. He was cooperative throughout his hospital stay and there were no para-suicidal behaviors. Pt was started on effexor and remeron to help with sleep, and these medications were well tolerated ans helpful. 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 He tried sleeping without remeron the night before discharge, and he did fine without it. He participated in group, [facility], and individual therapies , mostly focused on DBT and the importance of consistant out-patient therapy. By he was stable, free of SI, and ready for discharge. (2) Borderline personality disorder Status: Chronic Hospital Course & Plan: As above. Physical Exam Latest Vital Signs T 99.8 P 89 R12 BP 128/89 Mental Status Exam General Appearance: Casual, Well Groomed, Good Eye Contact, Cooperative, Polite , Good Interaction, No Tearful, No Psychomotor Agitation, No Psychomotor Retardation, No Bizarre Mannerisms, No Tics Speech: Clear, Spontaneous, Normal Rate, Normal Rhythm, Normal Volume, Normal Tone Mood: Euthymic Affect: Full and Appropriate, Calm, No Flat, No Withdrawn, No Tearful, No Anxious, No Agitated Thought Process: Organized, Logical, Goal Directed, No Loose Associations, No Flight of Ideas Thought Content: No Suicidal Ideation, No Homicidal Ideation, No Delusions, No Auditory Halllucinations, No Visual Hallucinations, No Thought Broadcasting, No Ideas of Reference, No Obsessions, No Compulsions Sensorium: Clear Cognition: Alert & Oriented-Person, Alert & Oriented-Place, Alert & Oriented- Time, Fpuyr-Ardjfivn-Bcbdazuyt Memory: Immediate, Recent, Remote Intelligence: Average Insight Judgment: Fair Departure Condition: Improved Discharge to: Home Discharge Instructions Home Meds Reported Medications Multivits,Th W-Fe,Other Min (THERA-M) 1 Each Tablet, 1 EACH PO QDAY 05/06/17 Venlafaxine Hcl (EFFEXOR XR) 75 Mg Cap.er.24h, 75 MG PO QAM 05/06/17 Special Instructions: Discharge today. Follow up with outpatient therapy and medication management. POONAM KHAN MD May 27, 2017 08:40
== END 2017-03-28 10:55 | disposition home or self-care (01) | DRG 883 ==
LOC: UNDOADMIN 02:29 → BHS 02:29
PROVIDERS: ADMIT Nurse Practitioner Psychiatric/Mental Health; ATTEND Nurse Practitioner Psychiatric/Mental Health
DX: F60.3 Borderline personality disorder (principal); R45.851 Suicidal ideations; F34.1 Dysthymic disorder; F17.210 Nicotine dependence, cigarettes, uncomplicated; Z91.5 Personal history of self-harm; Z81.8 Family history of other mental and behavioral disorders
CPT/HCPCS: 90471; 90674; 90853

== ENCOUNTER 2017-04-24 06:31 | Emergency (ER) | payer OTHER ==
[~2017-04-24] VITALS: Ht 180.3 cm; Wt 77.1 kg
[~2017-04-24 06:31] MED LIST changes: +MULT-1335 PO
--- NOTE | 2017-04-24 06:43 | ER Report ---
History and Physical Time Seen By MD: 06:39 Hx. of Stated Complaint: PT HAS SUICIDAL IDEATION. (DAKSHA CHAO MD) HPI/ROS CHIEF COMPLAINT: suicidal ideation. HISTORY OF PRESENT ILLNESS: This is a 22 year old male. He has suicidal ideation. He was going to be getting off work at about 0700 today and was going to hang himself or borrow a gun to kill himself. He sent a text to this effect and the police picked him up and have him under an emergency hold. He has been to the behavioral health unit in the past. He has history of Depression. Is not currently taking any medications. He is cooperative and knows he needs help. Denies drug or alcohol use at this time. He denies previous suicide attempts, but has been suicidal in the past. He has no current medical problems. He does not see a therapist yet, but was scheduled to see Rashid. REVIEW OF SYSTEMS: Constitutional: No fever or chills. Eyes: No vision changes. ENT: No sore throat. No congestion. Cardiovascular: No chest pain. Respiratory: No cough. No shortness of breath. Gastrointestinal: No abdominal pain. No nausea or vomiting. Genitourinary: No dysuria or problems with urination. Musculoskeletal: No back pain. Skin: No rashes. Neurological: No numbness. No weakness. (DAKSHA CHAO MD) Allergies: Coded Allergies: No Known Drug Allergies (Unverified , 04/24/17) Home Meds Discontinued Reported Medications Multivitamin With Minerals (MULTIPLE VITAMIN) 1 Each Tablet, 1 EACH PO DAILY, TAB 03/28/17 Venlafaxine Hcl (EFFEXOR XR) 75 Mg Cap.er.24h, 75 MG PO QDAY 03/28/17 Reviewed Nurses Notes: Yes (DAKSHA HCAO MD) Hx Smoking: Yes Smoking Status: Current: Every Day Smoker, Heavy Tobacco Smoker Exposure to Second Hand Smoke?: Yes Hx Substance Use Disorder: No Hx Alcohol Use: Yes (DAKSHA CHAO MD) Constitutional Vital Sign - Last 24 Hours 04/24/17 06:33 Temp 99.3 Pulse 89 Resp 12 B/P (MAP) 149/96 Pulse Ox 94 O2 Delivery Room Air (KEKE ANG MD) Physical Exam General Appearance: The patient is alert, has no immediate need for airway protection and no current signs of toxicity. Eyes: Pupils equal and round no injection. ENT: Normal oral mucosa. Moist mucous membranes. Neck: Neck is supple and non tender. Respiratory: Chest is non tender, lungs are clear to auscultation. Cardiac: regular rate and rhythm Gastrointestinal: Abdomen is soft and non tender, no masses, bowel sounds normal. Musculoskeletal: Extremities have full range of motion. Skin: No rashes or lesions. DIFFERENTIAL DIAGNOSIS: After history and physical exam differential diagnosis was considered for suicidal ideation. ([facility] Medical Decision Making Data Points Result Diagram: 04/24/17 0645 04/24/17 0645 Laboratory Hematology Test 04/24/17 06:45 Red Blood Count 5.66 M/uL (4.00-5.60) Mean Corpuscular Volume 86.0 fL (80.0-96.0) Mean Corpuscular Hemoglobin 30.0 pg (26.0-33.0) Mean Corpuscular Hemoglobin Concent 34.9 g/dL (32.0-36.0) Red Cell Distribution Width 13.0 % (11.5-14.5) Mean Platelet Volume 7.7 fL (7.2-11.1) Neutrophils (%) (Auto) 85.7 % (39.4-72.5) Lymphocytes (%) (Auto) 9.9 % (17.6-49.6) Monocytes (%) (Auto) 3.7 % (4.1-12.4) Eosinophils (%) (Auto) 0.2 % (0.4-6.7) Basophils (%) (Auto) 0.5 % (0.3-1.4) Nucleated RBC Relative Count (auto) 0.0 /100WBC Neutrophils # (Auto) 8.6 K/uL (2.0-7.4) Lymphocytes # (Auto) 1.0 K/uL (1.3-3.6) Monocytes # (Auto) 0.4 K/uL (0.3-1.0) Eosinophils # (Auto) 0.0 K/uL (0.0-0.5) Basophils # (Auto) 0.1 K/uL (0.0-0.1) Nucleated RBC Absolute Count (auto) 0.00 K/uL Peripheral Blood Smear No Y/N Urine Color Yellow Urine Clarity Clear Urine pH 5.0 pH (4.8-9.5) Urine Specific Gravette 1.025 Urine Protein Negative mg/dL (NEGATIVE) Urine Glucose (UA) Negative mg/dL (NEGATIVE) Urine Ketones Negative mg/dL (NEGATIVE) Urine Blood Small (NEGATIVE) Urine Nitrite Negative (NEGATIVE) Urine Bilirubin Negative (NEGATIVE) Urine Urobilinogen Negative mg/dL (0.2-1.9) Urine Leukocyte Esterase Negative (NEGATIVE) Urine RBC <1 /HPF (0-2/HPF) Urine WBC <1 /HPF (0-5/HPF) Urine Squamous Epithelial Cells None /LPF (</=FEW) Urine Bacteria Negative /HPF (NONE-FEW) Urine Mucus Few /HPF (NONE-FEW) Sodium Level 141 mmol/L (137-145) Potassium Level 4.1 mmol/L (3.5-5.0) Chloride Level 103 mmol/L (98-107) Carbon Dioxide Level 25 mmol/L (22-30) Blood Urea Nitrogen 19 mg/dl (9-21) Creatinine 1.10 mg/dl (0.66-1.25) Glomerular Filtration Rate Calc > 60.0 Random Glucose 97 mg/dl (75-110) Calcium Level 9.7 mg/dl (8.4-10.2) Magnesium Level 1.7 mg/dl (1.7-2.2) Total Bilirubin 1.0 mg/dl (0.2-1.3) Aspartate Amino Transf (AST/SGOT) 23 U/L (0-35) Alanine Aminotransferase (ALT/SGPT) 24 U/L (0-56) Alkaline Phosphatase 73 U/L (0-126) Total Protein 8.4 gm/dl (6.3-8.2) Albumin 4.8 g/dl (3.5-5.0) Salicylates Level < 10 mg/L Salicylate Last Dose Date unk Urine Opiates Screen Negative Acetaminophen Level < 10 ug/ml Urine Barbiturates Screen Negative Ur Tricyclic Antidepressants Screen Negative Urine Phencyclidine Screen Negative Urine Amphetamines Screen Negative Urine Benzodiazepines Screen Negative Urine Cocaine Screen Negative Urine Cannabinoids Screen Negative Serum Alcohol < 10 mg/dl Chemistry Test 04/24/17 06:45 White Blood Count 10.0 k/uL (4.5-11.0) Red Blood Count 5.66 M/uL (4.00-5.60) Hemoglobin 17.0 g/dL (14.0-18.0) Hematocrit 48.7 % (42.0-52.0) Mean Corpuscular Volume 86.0 fL (80.0-96.0) Mean Corpuscular Hemoglobin 30.0 pg (26.0-33.0) Mean Corpuscular Hemoglobin Concent 34.9 g/dL (32.0-36.0) Red Cell Distribution Width 13.0 % (11.5-14.5) Platelet Count 311 K/uL (150-450) Mean Platelet Volume 7.7 fL (7.2-11.1) Neutrophils (%) (Auto) 85.7 % (39.4-72.5) Lymphocytes (%) (Auto) 9.9 % (17.6-49.6) Monocytes (%) (Auto) 3.7 % (4.1-12.4) Eosinophils (%) (Auto) 0.2 % (0.4-6.7) Basophils (%) (Auto) 0.5 % (0.3-1.4) Nucleated RBC Relative Count (auto) 0.0 /100WBC Neutrophils # (Auto) 8.6 K/uL (2.0-7.4) Lymphocytes # (Auto) 1.0 K/uL (1.3-3.6) Monocytes # (Auto) 0.4 K/uL (0.3-1.0) Eosinophils # (Auto) 0.0 K/uL (0.0-0.5) Basophils # (Auto) 0.1 K/uL (0.0-0.1) Nucleated RBC Absolute Count (auto) 0.00 K/uL Peripheral Blood Smear No Y/N Urine Color Yellow Urine Clarity Clear Urine pH 5.0 pH (4.8-9.5) Urine Specific Gravette 1.025 Urine Protein Negative mg/dL (NEGATIVE) Urine Glucose (UA) Negative mg/dL (NEGATIVE) Urine Ketones Negative mg/dL (NEGATIVE) Urine Blood Small (NEGATIVE) Urine Nitrite Negative (NEGATIVE) Urine Bilirubin Negative (NEGATIVE) Urine Urobilinogen Negative mg/dL (0.2-1.9) Urine Leukocyte Esterase Negative (NEGATIVE) Urine RBC <1 /HPF (0-2/HPF) Urine WBC <1 /HPF (0-5/HPF) Urine Squamous Epithelial Cells None /LPF (</=FEW) Urine Bacteria Negative /HPF (NONE-FEW) Urine Mucus Few /HPF (NONE-FEW) Glomerular Filtration Rate Calc > 60.0 Calcium Level 9.7 mg/dl (8.4-10.2) Magnesium Level 1.7 mg/dl (1.7-2.2) Total Bilirubin 1.0 mg/dl (0.2-1.3) Aspartate Amino Transf (AST/SGOT) 23 U/L (0-35) Alanine Aminotransferase (ALT/SGPT) 24 U/L (0-56) Alkaline Phosphatase 73 U/L (0-126) Total Protein 8.4 gm/dl (6.3-8.2) Albumin 4.8 g/dl (3.5-5.0) Salicylates Level < 10 mg/L Salicylate Last Dose Date unk Urine Opiates Screen Negative Acetaminophen Level < 10 ug/ml Urine Barbiturates Screen Negative Ur Tricyclic Antidepressants Screen Negative Urine Phencyclidine Screen Negative Urine Amphetamines Screen Negative Urine Benzodiazepines Screen Negative Urine Cocaine Screen Negative Urine Cannabinoids Screen Negative Serum Alcohol < 10 mg/dl Toxicology Test 04/24/17 06:45 Salicylates Level < 10 mg/L Salicylate Last Dose Date unk Urine Opiates Screen Negative Acetaminophen Level < 10 ug/ml Urine Barbiturates Screen Negative Ur Tricyclic Antidepressants Screen Negative Urine Phencyclidine Screen Negative Urine Amphetamines Screen Negative Urine Benzodiazepines Screen Negative Urine Cocaine Screen Negative Urine Cannabinoids Screen Negative Serum Alcohol < 10 mg/dl Urinalysis Test 04/24/17 06:45 Urine Color Yellow Urine Clarity Clear Urine pH 5.0 pH (4.8-9.5) Urine Specific Gravette 1.025 Urine Protein Negative mg/dL (NEGATIVE) Urine Glucose (UA) Negative mg/dL (NEGATIVE) Urine Ketones Negative mg/dL (NEGATIVE) Urine Blood Small (NEGATIVE) Urine Nitrite Negative (NEGATIVE) Urine Bilirubin Negative (NEGATIVE) Urine Urobilinogen Negative mg/dL (0.2-1.9) Urine Leukocyte Esterase Negative (NEGATIVE) Urine RBC <1 /HPF (0-2/HPF) Urine WBC <1 /HPF (0-5/HPF) Urine Squamous Epithelial Cells None /LPF (</=FEW) Urine Bacteria Negative /HPF (NONE-FEW) Urine Mucus Few /HPF (NONE-FEW) (KEKE ANG MD) ED Course/Re-evaluation ED Course After evaluation of the patient and police report, will uphold the emergency penitentiary. Decision to Disposition Date: Apr 24, 2017 Decision to Disposition Time: 06:53 (DAKSHA CHAO MD) ED Course Labs within normal limits. I discussed the case with LORETTA Garber. She accepts patient. Patient will be admitted for suicidal ideations and a plan. . Re-evaluation Medical decision making, Suicidal ideations with plan Decision to Disposition Date: Apr 24, 2017 Decision to Disposition Time: 08:21 (KEKE ANG MD) Depart Departure Latest Vital Signs Vital Signs Date Time Temp Pulse Resp B/P (MAP) Pulse Ox O2 Delivery O2 Flow Rate FiO2 04/24/17 06:33 99.3 89 12 149/96 94 Room Air (KEKE ANG MD) Impression: Primary Impression: Suicidal ideation Condition: Condition Unchanged Disposition: Admitted from ER New Scripts No Active Prescriptions or Reported Meds DAKSHA CHAO MD Apr 24, 2017 06:42 KEKE ANG MD Apr 24, 2017 08:22
--- NOTE | 2017-04-24 06:56 | BHS - Psychiatric Evaluation ---
ER - Title 25 MHE Evaluation Title 25 Evaluation Patient Detained By: Law Enforcement Referral Source: text, patient history, law enforcement history Date Patient Detained: Apr 24, 2017 Time Patient Detained: : Date Residential Expires: Apr 29, 2017 Time Residential Expires: :20 Legal Status: Police Hold: No Legal Status: Residence: [facility] Assessment Data Provided By: Patient, Law Enforcement, Other Source (Text message.) HPI/ROS: This is a 22 year old male. He has suicidal ideation. He was going to be getting off work at about 0700 today and was going to hang himself or borrow a gun to kill himself. He sent a text to this effect and the police picked him up and have him under an emergency hold. He has been to the behavioral health unit in the past. He has history of Depression. Is not currently taking any medications. He is cooperative and knows he needs help. Denies drug or alcohol use at this time. He denies previous suicide attempts, but has been suicidal in the past. He has no current medical problems. He does not see a therapist yet, but was scheduled to see Rashid. I reviewed the police report Admit due to SI or Attempt: Yes Suicide Plan: Has Plan with Access Current Suicide Plan to hang himself or to get access to a gun and shoot himself Alcohol or Drugs Involved: No Is Patient Info Reliable: Yes Is Collateral Info Reliable: Yes Mental Status Exam General Appearance: Casual, Well Groomed, Good Eye Contact, Cooperative, Polite Speech: Clear, Spontaneous, Normal Rate, Normal Rhythm, Normal Volume, Normal Tone Mood: Dysthmic/Depressed Affect: Calm, Neutral Thought Process: Organized, Logical Thought Content: Suicidal Ideation, No Homicidal Ideation, No Auditory Halllucinations, No Visual Hallucinations Sensorium: Clear Cognition: Alert & Oriented-Person, Alert & Oriented-Place, Alert & Oriented- Time, Dlods-Yvcmmvin-Rarfjxzcs Insight Judgment: Good Current Risk & History Current Dangerous Risk Assessm: Current Suicide Ideation Past Dangerous Risk Assessm: Suicide Ideation-last 6mo Previous Suicide Attempt: No Previous Attempt Previous Psychiatric Illness: Yes Previous Diagnosis/Treatment: Has been on behavioral health in the past. Has had suicidal thought since about age 8. Will have depression intermixed with period of normal mood. Previous Psychiatric Treatment: Yes Risk Assessment & Disposition Evaluated Risk Assessment: High risk based on information provided by the patient and law enforcement. Impression: Primary Impression: Suicidal ideation Additional Impressions: Persistent depressive disorder Borderline personality disorder Meets Mental Illness Req.: Yes Meets Dangerousness Req.: Yes Emergency Residential to be: Upheld Date of Decision: Apr 24, 2017 Time of Decision: 07:28 Patient is Medically Stable at: Yes Disposition: [facility] Problem Qualifiers DAKSHA CHAO MD Apr 24, 2017 06:56
[2017-04-24 07:27] LABS: PLATELET COUNT, AUTOMATED 311 K/uL (150-450)
[2017-04-24 08:27] VITALS: BP 130/85
== END 2017-04-24 08:52 | disposition other institution (70) ==
LOC: ER 06:35
DX: R45.851 Suicidal ideations (principal)
CPT/HCPCS: 36415; 80305; 80320; 80329; 81001; 82040; 82247; 82310; 82374; 82435; 82565; 82947; 83735; 84075; 84132; 84155; 84295; 84443; 84450; 84460; 84520; 85025; 99285

== ENCOUNTER 2017-04-24 08:19 | Inpatient (IN) | payer OTHER ==
[~2017-04-24] VITALS: Ht 182.9 cm; Wt 74.8 kg
[2017-04-24 08:45] VITALS: BP 140/83
[2017-04-24] MEDS ORDERED: ACETAMINOPHEN 325 MG TAB PO PRN (12:50)
[2017-04-24] MEDS ORDERED: MAG HYD/AL HYD/SIMETH 30ML UDC PO PRN (12:50)
[2017-04-24] MEDS: VENLAFAXINE XR 37.5 MG CAPCR PO SCH (13:13)
[2017-04-25 03:14] VITALS: BP 130/80
[2017-04-25] MEDS: VENLAFAXINE XR 37.5 MG CAPCR PO SCH (07:58)
[2017-04-25] MEDS: MULTIVITAMINS PO SCH (07:58)
[2017-04-25] MEDS ORDERED: VENLAFAXINE XR 37.5 MG CAPCR PO ONE (12:15)
--- NOTE | 2017-04-26 04:25 | HISTORY AND PHYSICAL ---
DATE OF SERVICE: April 25, 2017 DATE OF ADMISSION: April 24, 2017 PRESENTING PROBLEM, CHIEF COMPLAINT "I made suicidal comments to my fiance, and she called the fuzz, and they brought me here." HISTORY OF PRESENT ILLNESS This is a 22-year-old male admitted to the unit on an involuntary basis after he texted suicidal statements to his girlfriend. She subsequently notified the police, who presented to patients work at [employer] [employer] and detained the patient. Patient is seen on the morning of April 25, 2017 by the treatment team. He reports that he has had suicidal thoughts on and off for the past 12 years. He says that on the morning of admission, he had gotten into trouble at work. He was written up. He felt angry, and then he felt sad, and then he had suicidal thoughts. At the time, he reported that he had a plan to either hang himself or find a gun. He denies a history of suicide attempts. He does have a history of admissions to the unit for reasons such as this, making suicidal statements during times of emotional stress. He reports a history of burning with cigarettes. The last time he burned was in the past two weeks. He does have a history of cutting with a box stapler as well. He has been self-harming since age 15 or 16 years old. Current symptoms include difficulty with managing emotions. He denies hallucinations. He denies paranoia, however, he reports that he does not trust other people. He reports that his sleep is good. His appetite is always low. There has not been a change. His energy level is decent. He is denying suicidal thoughts today, reporting that his last suicidal thought with intent was prior to admission. MENTAL HEALTH HISTORY Patient was hospitalized at [facility] in December 2016 as well as March 21, 2017 for similar reasons, suicidal statements without action. Treatment: He is currently working with Isid[facility] at [facility] in therapy. He reports that he just saw him only several times so far. MEDICATIONS He is not currently on medications. When he discharged from our unit earlier in March, he was discharged with a prescription for venlafaxine 75 mg. Patient reports that he had lost that prescription and never did fill it, so he has been off of medicine. He has also taken Remeron in the past, which he was started on when he was on the unit in December of 2016. However, he never continued on that either. He denies a history of suicide attempts. FAMILY PSYCHIATRIC HISTORY He reports that his mother and his brother both have depression. He does know that his brother takes citalopram. He denies any suicides in the biological family. PAST MEDICAL HISTORY Denied. SOCIAL HISTORY He reports being born [place] He got his diploma through the [employer], no further education after that. His biological father and mother were never . His biological father has never really been in his life. He was essentially raised by his stepfather and his mother, who in 2011. He is currently living in [place], [place] with his fiance and their two dogs. 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 LEGAL HISTORY Denied. SUBSTANCE ABUSE HISTORY He denies any regular alcohol use. He reports that in the first two years of high school, he was drinking daily while in school by filling up a camelback water pouch. Illicit drug use: He denies current use. He has used acid and weed in the past. He reports last used acid in high school, last used marijuana a few months ago. Tobacco: He smokes half a pack of cigarettes a day since eighth grade. PHYSICAL EXAMINATION This is a well-developed, well-nourished 22-year-old male in no acute distress. Vital signs on admission: Temperature 99.8, pulse 74, blood pressure 140/83, oxygen saturation 97% on room air. Please see emergency room note for complete review of systems. LABORATORY DATA Laboratory data completed in the emergency room showed red blood cells high at 5.66, neutrophils high at 85.7, lymphocytes low at 9.9, eosinophils at 3.7 and low, basophils 0.2 and low, neutrophil number at 8.6 and high, lymphocyte number at 1.0 and low. Chemistries showed total protein at 8.4, slightly high. Salicylates negative. Acetaminophen negative. Alcohol negative. Urine drug screen negative. TSH is pending. MENTAL STATUS EXAMINATION GENERAL APPEARANCE, BEHAVIOR AND ATTITUDE: Patient is alert and cooperative. He does make good eye contact during the interview. No abnormal psychomotor activity is noted. SPEECH: Clear and spontaneous and of normal rate, rhythm and volume. MOOD: Patient describes mood as fine. AFFECT: Euthymic. No tearfulness noted. . THOUGHT PROCESSES: Overall logical and goal-directed. No loose associations or flight of ideas. THOUGHT CONTENT: He is denying suicidal thoughts today. He denies homicidal thoughts. He denies hallucinations. No delusions are elicited. COGNITION: Oriented to person, place, day, date and situation. ESTIMATED INTELLIGENCE: Average based upon interview. MEMORY: Immediate, recent and remote estimated grossly intact. INSIGHT AND JUDGMENT: Fair. He is recognizing that he is having a problem managing his emotions, which lead to the suicidal statements. He is reporting wanting to continue with therapy and medications. ASSESSMENT This is a 22-year-old male admitted to the unit under an emergency care home due to suicidal statements with a plan. He is denying suicidal thoughts today, however, acknowledges that at the moment when he made the suicidal statements, he was having those thoughts. It does appear that he has difficulty managing emotions and the thoughts of self harm occur after a stressful event or issue in his relationship or occupational life. DIAGNOSES PER DSM-V Borderline personality disorder. Unspecified anxiety disorder. PLAN 1. Patient is admitted to the unit. 2. Necessary precautions will be implemented. 3. The patient will participate in individual, group and milieu psychoeducation and therapy. 4. Medications will be administered and titrated accordingly. 5. Collateral information to be obtained as necessary. 6. Estimated length of stay three to five days. MTDD
[2017-04-26 05:10] VITALS: BP 126/94
[2017-04-26] MEDS: VENLAFAXINE XR 75 MG CAPCR PO SCH (08:19)
[2017-04-26] MEDS: MULTIVITAMINS PO SCH (08:19)
--- NOTE | 2017-04-26 15:13 | BHS Progress Note ---
[facility] - Subjective Progress Notes Subjective Patient notably cooperative but remains manipulative overall, consistent with borderline personality diagnosis. Patient also carrying diagnosis of persisting depressive disorder. Will continue same medications today, and will go forward with hearing in an effort to instill court ordered outpatient treatment in this patient who historically does not follow through on outpatient treatment. No other concerns today. Suicidal Ideation: None Homicidal Ideation: None [facility] - Objective Physical Exam Vital Signs Vital Signs Date Time Temp Pulse Resp B/P (MAP) Pulse Ox O2 Delivery O2 Flow Rate FiO2 04/26/17 05:10 98.2 55 16 126/94 (105) 97 Room Air Muscle Strength and Tone: WNL Gait and Station: Steady [facility] Medications Reviewed: Side Effects, Benefits of Medication, Risks Allergies Reviewed: Yes Mental Status Exam General Appearance: Casual, Well Groomed, Good Eye Contact, Cooperative, Polite , Good Interaction, No Unkept, No Tearful, No Psychomotor Agitation, No Psychomotor Retardation, No Bizarre Mannerisms, No Tics Speech: Clear, Spontaneous, Normal Rate, Normal Rhythm, Normal Volume, Normal Tone Mood: Dysthmic/Depressed (improving) Affect: Full and Appropriate Thought Process: Organized, Logical, Goal Directed, No Loose Associations, No Flight of Ideas Thought Content: No Suicidal Ideation, No Homicidal Ideation, No Delusions, No Auditory Halllucinations, No Visual Hallucinations, No Thought Broadcasting, No Ideas of Reference, No Obsessions, No Compulsions Sensorium: Clear Cognition: Alert & Oriented-Person, Alert & Oriented-Place, Alert & Oriented- Time, Hlkec-Dmsrfsaz-Lexahnwdy Memory: Immediate, Recent, Remote Intelligence: Average Insight Judgment: Poor (patient sufferes from BBorderline personality disorder) [facility] Assessment and Plan [id number] Encounter Date: Apr 26, 2017 [id number] Encounter Time: 09:30 [facility] Plan: Necessary Precautions, Individual/Group Therapy, Admin/Titrate Meds, Educate Patient Tobacco Medications: Not Appropriate Condition Problems: (1) Borderline personality disorder Status: Chronic (2) Persistent depressive disorder Status: Chronic Condition 1. will attempt to get court ordered outpatient treatment plan in place 2. no medication changes. 3. schedule hearing MANUEL ESTEVES MD Apr 26, 2017 15:13
--- NOTE | 2017-04-26 17:40 | BHS - Psychiatric Evaluation ---
Title 25 Evaluation Hearing Report: 109 Date of Report: Apr 26, 2017 Examiner: Myah Arellano M.S., L.P.C. Patient Detained By: Physician (Dr. Hines), Law Enforcement (Law Enforcement, Fercho Garcia) 24hr Mental Health Eval By: Dr Hines Date Patient Detained: Apr 24, 2017 Time Patient Detained: 06:20 Date Alf Expires: Apr 29, 2017 Time Alf Expires: 06:20 Legal Status: Police Hold: No Legal Status: Relationship: Single Legal Status: Residence: [facility] Resident Referral Source: Professional, law Enforcent Fercho Resendiz Assessment Data Provided By: Patient, Therapist Chief Complaint: Patient had been frustrated about running out of his medications, he says, and texted his gf that he was suicidal, said, "No I'm fucking done. I'm killing myself today, and ther's no changing, so you better start notifying people." HPI/ROS: Per ER Dr. Hines, "This is a 22 year old male. He has suicidal ideation. He was going to be getting off work at about 0700 today and was going to hang himself or borrow a gun to kill himself. He sent a text to this effect and the police picked him up and have him under an emergency hold. He has been to the behavioral health unit in the past. He has history of Depression. Is not currently taking any medications. He is cooperative and knows he needs help. Denies drug or alcohol use at this time. He denies previous suicide attempts, but has been suicidal in the past. He has no current medical problems. He does not see a therapist yet, but was scheduled to see Rashid. I reviewed the police report Admit due to SI or Attempt: Yes Suicide Plan: Has Plan with Access Current Suicide Plan to hang himself or to get access to a gun and shoot himself." Reliability of Pt-Evidenced By Patient has to be taken at his word that he is suicidal. On his last fci , family members communicated growing concern. Current Dangerous Risk Assess: Protective Factors (Has a job at [employer].) Current Risk Summary: Risk summary is high related to patients impulsiveness and inability to self- regulate. He becomes escalated and has lethal plans to end his life. His suicidal statements include plans and means to kill himself. Past Dangerous Risk Assess: Suicide Ideation-last 6mo (Reports suicidal plan a little over 1 month ago.) BHS - Exam Physical Exam Vital Signs Vital Signs 04/26/17 05:10 Temp 98.2 Pulse 55 Resp 16 B/P (MAP) 126/94 (105) Pulse Ox 97 O2 Delivery Room Air Mental Status Exam General Appearance: Casual, Well Groomed, Good Eye Contact, Cooperative, Polite , Good Interaction, No Unkept, No Tearful, No Psychomotor Agitation, No Psychomotor Retardation, No Bizarre Mannerisms, No Tics Speech: Clear, Spontaneous, Normal Rate, Normal Rhythm, Normal Volume, Normal Tone Mood: Dysthmic/Depressed (Reports chronic depression.) Affect: Full and Appropriate Thought Process: Organized, Logical, Goal Directed, No Loose Associations, No Flight of Ideas Thought Content: No Suicidal Ideation, No Homicidal Ideation, No Delusions, No Auditory Halllucinations, No Visual Hallucinations, No Thought Broadcasting, No Ideas of Reference, No Obsessions, No Compulsions Sensorium: Clear Cognition: Alert & Oriented-Person, Alert & Oriented-Place, Alert & Oriented- Time, Aojhb-Cjiimxpm-Xdqkwkwkv Memory: Immediate, Recent, Remote Intelligence: Average Insight Judgment: Poor (Patient is impulsive and reactive.) Title 25 History Psychiatric History: Per psychiatric professional, Brittaney Zamudio, "He reports that he has had suicidal thoughts on and off for the past 12 years. He denies paranoia, however, he reports that he does not trust other people. He reports that his sleep is good. His appetite is always low. There has not been a change. His energy level is decent. He is denying suicidal thoughts today, reporting that his last suicidal thought with intent was prior to admission. He is not currently on medications. When he discharged from our unit earlier in March, he was discharged with a prescription for venlafaxine 75 mg. Patient reports that he had lost that prescription and never did fill it, so he has been off of medicine. He has also taken Remeron in the past, which he was started on when he was on the unit in December of 2016. However, he never continued on that either. He denies a history of suicide attempts." Family Psychiatric Hx: Patient says his mother and brother have depression. Social History: He reports being born and raised in [place], [place]. He got his diploma through the [employer], no further education after that. His biological father and mother were never . His biological father has never really been in his life. He was essentially raised by his stepfather and his mother, who in 2011. He is currently living in [place], [place] with his fiance and their two dogs. 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 Previous Detentions: Patient detained last month. Prior Hospitalizations: Patient has had 3 hospitalizations in the last 5 months. Jan 11, 2017 March 21, 2017 April 24, 2016 Historic Psychiatric Dx: Borderline personality disorder Unspecified anxiety disorder Current Living Situation: Patient lives at physical address of [address] [place] [address] [id number] Assessment and Plan Course of Care: Necessary precautions will be implemented. The patient will participate in individual, group and milieu psychoeducation and therapy. Medications will be administered and titrated accordingly. Collateral information to be obtained as necessary. Diagnostic Impressions: Borderline personality disorder Unspecified anxiety disorder Assessment and Plan: Patient will observed and provided a custom tailored plan that meets his needs for personality disorder, suicidal thoughts, and anxiety. Risk Formulation: The patient "evidences a substantial probability of physical harm to self as manifested by evidence of recent threats of/or attempts at suicide or serious bodily harm" as evidenced by:Risk summary is high related to patients impulsiveness and inability to self-regulate. He becomes escalated and has lethal plans to end his life. His suicidal statements include plans and means to kill himself. Recommendations of S Team: It is therefore recommended by the Behavioral Health Services Team: patient, Geraldo Reagan, mandated to do outpatient care in conjunction with the [facility] program. His historical response to [facility] trying to connect with him has been avoidance and no follow through with recommended care on his own behalf. He has made very serious statements about taking his own life, and appears intent on those thoughts. If his agreement to followup with [facility] support is mandated, it may help patient recognize how important his life is, and how many resources he has before it becomes an escalated situation in which he plans to take his life. As patient is mentally ill, he may not recognize the necessity of recommended followup care and support. MYAH ARELLANO [facility] Apr 26, 2017 17:30
[2017-04-26 22:10] VITALS: BP 122/80
[2017-04-27] MEDS: MULTIVITAMINS PO SCH (08:11)
[2017-04-27] MEDS: VENLAFAXINE XR 75 MG CAPCR PO SCH (08:11)
--- NOTE | 2017-04-27 13:42 | BHS Progress Note ---
[facility] - Subjective Progress Notes Subjective Patient smiling this AM, and overall cooperative, patient continues to struggle with maladaptive stress coping mechanisms associated with borderline personality disorder. Patient does appear to be taking an active role in his treatment. Based on historical outpatient treatment failure and repeated hospitalizations, will proceed with hearing with aim to order compliance with outpatient treatment program. Appetite and sleep good, no other concerns today. Suicidal Ideation: None Homicidal Ideation: None [facility] - Objective Physical Exam Vital Signs Vital Signs Date Time Temp Pulse Resp B/P (MAP) Pulse Ox O2 Delivery O2 Flow Rate FiO2 04/26/17 22:10 98.6 73 122/80 (94) 96 Room Air 04/26/17 05:10 16 Muscle Strength and Tone: WNL Gait and Station: Steady [facility] Medications Reviewed: Side Effects, Benefits of Medication, Risks Allergies Reviewed: Yes Mental Status Exam General Appearance: Casual, Well Groomed, Good Eye Contact, Cooperative, Polite , Good Interaction, No Unkept, No Tearful, No Psychomotor Agitation, No Psychomotor Retardation, No Bizarre Mannerisms, No Tics Speech: Clear, Spontaneous, Normal Rate, Normal Rhythm, Normal Volume, Normal Tone Mood: Dysthmic/Depressed (Reports chronic depression.) Affect: Full and Appropriate Thought Process: Organized, Logical, Goal Directed, No Loose Associations, No Flight of Ideas Thought Content: No Suicidal Ideation, No Homicidal Ideation, No Delusions, No Auditory Halllucinations, No Visual Hallucinations, No Thought Broadcasting, No Ideas of Reference, No Obsessions, No Compulsions Sensorium: Clear Cognition: Alert & Oriented-Person, Alert & Oriented-Place, Alert & Oriented- Time, Betce-Kseglqmx-Wmnfkjzry Memory: Immediate, Recent, Remote Intelligence: Average Insight Judgment: Poor (Patient is impulsive and reactive.) [facility] Assessment and Plan Diol-ki-Nwhg Encounter Date: Apr 27, 2017 Bldi-ax-Popx Encounter Time: 11:30 [facility] Plan: Necessary Precautions, Individual/Group Therapy, Admin/Titrate Meds, Educate Patient Tobacco Medications: Not Appropriate Condition Problems: (1) Borderline personality disorder Status: Chronic (2) Persistent depressive disorder Status: Chronic Condition 1. no medication changes. 2. continue treatment. 3. hearing tomorrow. MANUEL ESTEVES MD Apr 27, 2017 13:42
[2017-04-27 21:46] VITALS: BP 131/51
[2017-04-28 06:34] VITALS: BP 118/58
[2017-04-28] MEDS: MULTIVITAMINS PO SCH (08:21)
[2017-04-28] MEDS: VENLAFAXINE XR 75 MG CAPCR PO SCH (08:21)
--- NOTE | 2017-04-28 10:28 | BHS Progress Note ---
[facility] - Subjective Progress Notes Subjective Patient interacting fairly well this AM, and notably interacting well with his girlfriend on the unit during treatment team meeting today as well. Patient and patient's girlfriend agreeing with the symptomatology associated with borderline personality disorder. hospital housekeeper program personnel here as well to help with outpatient follow up. Will encourage court to implement outpatient treatment commitment. Patient sleeping, and eating well, no other concerns. Suicidal Ideation: None Homicidal Ideation: None [facility] - Objective Physical Exam Vital Signs Vital Signs Date Time Temp Pulse Resp B/P (MAP) Pulse Ox O2 Delivery O2 Flow Rate FiO2 04/28/17 06:34 98.7 59 15 118/58 (78) 97 Room Air Muscle Strength and Tone: WNL Gait and Station: Steady [facility] Medications Reviewed: Side Effects, Benefits of Medication, Risks Allergies Reviewed: Yes Mental Status Exam General Appearance: Casual, Well Groomed, Good Eye Contact, Cooperative, Polite , Good Interaction, No Unkept, No Tearful, No Psychomotor Agitation, No Psychomotor Retardation, No Bizarre Mannerisms, No Tics Speech: Clear, Spontaneous, Normal Rate, Normal Rhythm, Normal Volume, Normal Tone Mood: Dysthmic/Depressed (Reports chronic depression.) Affect: Full and Appropriate Thought Process: Organized, Logical, Goal Directed, No Loose Associations, No Flight of Ideas Thought Content: No Suicidal Ideation, No Homicidal Ideation, No Delusions, No Auditory Halllucinations, No Visual Hallucinations, No Thought Broadcasting, No Ideas of Reference, No Obsessions, No Compulsions Sensorium: Clear Cognition: Alert & Oriented-Person, Alert & Oriented-Place, Alert & Oriented- Time, Ycstz-Llvxbweh-Bkztgnydz Memory: Immediate, Recent, Remote Intelligence: Average Insight Judgment: Poor (maladaptive personality traits) [facility] Assessment and Plan Slyn-be-Zxkr Encounter Date: Apr 28, 2017 Evzy-yl-Dwgp Encounter Time: 10:30 [facility] Plan: Necessary Precautions, Individual/Group Therapy, Admin/Titrate Meds, Educate Patient Tobacco Medications: Not Appropriate Condition Problems: (1) Borderline personality disorder Status: Chronic (2) Persistent depressive disorder Status: Chronic Condition 1. continue treatment 2. set up outpatient treatment 3. no medication changes. MANUEL ESTEVES MD Apr 28, 2017 10:28
[2017-04-29 05:47] VITALS: BP 123/79
[2017-04-29] MEDS: MULTIVITAMINS PO SCH (08:06)
[2017-04-29] MEDS: VENLAFAXINE XR 75 MG CAPCR PO SCH (08:06)
[2017-04-29 08:46] VITALS: BP 123/74
--- NOTE | 2017-04-29 11:56 | BHS Progress Note ---
S - Subjective Progress Notes Subjective Patient remains very pleasant and cooperative on the unit, and appears to be taking an active role in his treatment. No para-suicidal behaviors, or aggression have been seen in this patient dayna historically quickly fails at outpatient treatment and quickly returns to the hospital with suicidal thoughts secondary to borderline personality disorder. Appetite, and sleep is intact. Will work with patient and court to arrange for outpatient suspended commitment. Suicidal Ideation: None Homicidal Ideation: None [facility] - Objective Physical Exam Vital Signs Vital Signs Date Time Temp Pulse Resp B/P (MAP) Pulse Ox O2 Delivery O2 Flow Rate FiO2 04/29/17 08:46 98.7 67 123/74 (90) 97 Room Air 04/29/17 05:47 15 Muscle Strength and Tone: WNL Gait and Station: Steady [facility] Medications Reviewed: Side Effects, Benefits of Medication, Risks Allergies Reviewed: Yes Mental Status Exam General Appearance: Casual, Well Groomed, Good Eye Contact, Cooperative, Polite , Good Interaction, No Unkept, No Tearful, No Psychomotor Agitation, No Psychomotor Retardation, No Bizarre Mannerisms, No Tics Speech: Clear, Spontaneous, Normal Rate, Normal Rhythm, Normal Volume, Normal Tone Mood: Dysthmic/Depressed (Reports chronic depression, buit states mood is good today ) Affect: Full and Appropriate Thought Process: Organized, Logical, Goal Directed, No Loose Associations, No Flight of Ideas Thought Content: No Suicidal Ideation, No Homicidal Ideation, No Delusions, No Auditory Halllucinations, No Visual Hallucinations, No Thought Broadcasting, No Ideas of Reference, No Obsessions, No Compulsions Sensorium: Clear Cognition: Alert & Oriented-Person, Alert & Oriented-Place, Alert & Oriented- Time, Zuzqf-Blobwaoj-Zjfbtwzam Memory: Immediate, Recent, Remote Intelligence: Average Insight Judgment: Poor (maladaptive personality traits) [facility] Assessment and Plan Lxnr-nb-Wrjz Encounter Date: Apr 29, 2017 Gxlu-mo-Rkff Encounter Time: 10:30 [facility] Plan: Necessary Precautions, Individual/Group Therapy, Admin/Titrate Meds, Educate Patient Tobacco Medications: Not Appropriate Condition Problems: (1) Borderline personality disorder Status: Chronic (2) Persistent depressive disorder Status: Chronic Condition 1. continue treatment. 2. arrange outpatient suspended commitment. MANUEL ESTEVES MD Apr 29, 2017 11:56
[2017-04-30 02:38] VITALS: BP 138/65
[2017-04-30] MEDS: MULTIVITAMINS PO SCH (08:10)
[2017-04-30] MEDS: VENLAFAXINE XR 75 MG CAPCR PO SCH (08:10)
--- NOTE | 2017-04-30 09:23 | BHS Progress Note ---
[facility] - Subjective Progress Notes Subjective Patient continues to participate in treatment on the unit, and is not engaging in any para-suicidal behavior, or aggression toward others. Appetite and sleep intact. No other concerns. Patient interacting well with his significant other on the unit today. Suicidal Ideation: None Homicidal Ideation: None [facility] - Objective Physical Exam Vital Signs Vital Signs Date Time Temp Pulse Resp B/P (MAP) Pulse Ox O2 Delivery O2 Flow Rate FiO2 04/30/17 02:38 98.7 76 138/65 (89) 96 Room Air 04/29/17 05:47 15 Muscle Strength and Tone: WNL Gait and Station: Steady [facility] Medications Reviewed: Side Effects, Benefits of Medication, Risks Allergies Reviewed: Yes Mental Status Exam General Appearance: Casual, Well Groomed, Good Eye Contact, Cooperative, Polite , Good Interaction, No Unkept, No Tearful, No Psychomotor Agitation, No Psychomotor Retardation, No Bizarre Mannerisms, No Tics Speech: Clear, Spontaneous, Normal Rate, Normal Rhythm, Normal Volume, Normal Tone Mood: Dysthmic/Depressed (Reports chronic depression, buit states mood is good today ) Affect: Full and Appropriate Thought Process: Organized, Logical, Goal Directed, No Loose Associations, No Flight of Ideas Thought Content: No Suicidal Ideation, No Homicidal Ideation, No Delusions, No Auditory Halllucinations, No Visual Hallucinations, No Thought Broadcasting, No Ideas of Reference, No Obsessions, No Compulsions Sensorium: Clear Cognition: Alert & Oriented-Person, Alert & Oriented-Place, Alert & Oriented- Time, Yxjtx-Jsjsgoab-Biabendch Memory: Immediate, Recent, Remote Intelligence: Average Insight Judgment: Poor (maladaptive personality traits) [facility] Assessment and Plan Uwkn-ic-Fclg Encounter Date: Apr 30, 2017 Sloq-dc-Ppdk Encounter Time: 09:00 [facility] Plan: Necessary Precautions, Individual/Group Therapy, Admin/Titrate Meds, Educate Patient Tobacco Medications: Not Appropriate Condition Problems: (1) Borderline personality disorder Status: Chronic (2) Persistent depressive disorder Status: Chronic Condition 1. continue treatment. 2. no medication changes. MANUEL ESTEVES MD Apr 30, 2017 09:23
[2017-04-30 12:55] VITALS: BP 135/71
[2017-05-01 00:31] VITALS: BP 122/74
[2017-05-01 08:28] VITALS: BP 112/77
[2017-05-01] MEDS: VENLAFAXINE XR 75 MG CAPCR PO SCH (08:32)
[2017-05-01] MEDS: MULTIVITAMINS PO SCH (08:32)
--- NOTE | 2017-05-01 09:54 | BHS Progress Note ---
[facility] - Subjective Progress Notes Subjective "I don't think I need to be here. I need outpatient and medications. I'm not really affected by ." Denies need for hospitalization, discuss lack of MH follow up with last discharge Reports left ankle stiffness from surgery two years ago Denies need for medications Denies depression, rates anxiety "2-3," 1-10 scale, 10 worst, denies anger Reports "episodic" suicidal ideation denies currently Reports financial stress, job related stress Suicidal Ideation: None Homicidal Ideation: None [facility] - Objective Physical Exam Muscle Strength and Tone: WNL Gait and Station: Steady [facility] Medications Reviewed: Side Effects, Benefits of Medication, Risks Allergies Reviewed: Yes Mental Status Exam General Appearance: Casual, Well Groomed, Good Eye Contact, Cooperative, Polite , Good Interaction, No Unkept, No Tearful, No Psychomotor Agitation, No Psychomotor Retardation, No Bizarre Mannerisms, No Tics Speech: Clear, Spontaneous, Normal Rate, Normal Rhythm, Normal Volume, Normal Tone Mood: Dysthmic/Depressed (Reports chronic depression, buit states mood is good today; stress contributes to worse mood ) Affect: Full and Appropriate Thought Process: Organized, Logical, Goal Directed, No Loose Associations, No Flight of Ideas Thought Content: No Suicidal Ideation, No Homicidal Ideation, No Delusions, No Auditory Halllucinations, No Visual Hallucinations, No Thought Broadcasting, No Ideas of Reference, No Obsessions, No Compulsions Sensorium: Clear Cognition: Alert & Oriented-Person, Alert & Oriented-Place, Alert & Oriented- Time, Rjvog-Yzfjtvks-Pajhctlka Memory: Immediate, Recent, Remote Intelligence: Average Insight Judgment: Poor (maladaptive personality traits) Lab Vital Signs Date Time Temp Pulse Resp B/P (MAP) Pulse Ox O2 Delivery O2 Flow Rate FiO2 05/01/17 08:28 98.9 70 112/77 (89) 96 Room Air 04/30/17 12:55 16 Allergies Coded Allergies No Known Drug Allergies (Unverified04/24/17) [facility] Assessment and Plan Lxzz-xd-Ukee Encounter Date: May 01, 2017 Amps-yq-Kdey Encounter Time: 09:53 [facility] Plan: Necessary Precautions, Individual/Group Therapy, Admin/Titrate Meds, Educate Patient Tobacco Medications: Not Appropriate Condition Problems: (1) Borderline personality disorder Status: Chronic (2) Persistent depressive disorder Status: Chronic (3) Suicidal ideation Status: Resolved Condition Continue current medications Maintain precautions Discuss stipulation, if discharged plans to fill prescriptions, follow up with care ROSEMARIE GUILLORY NP May 01, 2017 09:53
[2017-05-02] MEDS: VENLAFAXINE XR 75 MG CAPCR PO SCH (08:15)
[2017-05-02] MEDS: MULTIVITAMINS PO SCH (08:15)
--- NOTE | 2017-05-02 09:57 | BHS Progress Note ---
[facility] - Subjective Progress Notes Subjective "Being emergency detained does more harm than good. In every situation there's lots of consequences. She didn't have to call the propeller engineer. I'm bored. My friends and I talk about suicide all the time and laugh about Xavier's mom, she od 'd triple C's and xani's." Denies anger, anxiety Rating depression "5" Denies urge for self harm, suicidal or homicidal ideation Suicidal Ideation: None Homicidal Ideation: None [facility] - Objective Physical Exam Muscle Strength and Tone: WNL Gait and Station: Steady [facility] Medications Reviewed: Side Effects, Benefits of Medication, Risks Allergies Reviewed: Yes Mental Status Exam General Appearance: Casual, Well Groomed, Good Eye Contact, Cooperative, Polite , Good Interaction Speech: Clear, Spontaneous, Normal Rate, Normal Rhythm, Normal Volume, Normal Tone Mood: Dysthmic/Depressed (rates depression "5" 1-10 scale, 10 worst) Affect: Full and Appropriate Thought Process: Organized, Logical, Goal Directed Thought Content: No Suicidal Ideation, No Homicidal Ideation, No Delusions, No Auditory Halllucinations, No Visual Hallucinations, No Thought Broadcasting, No Ideas of Reference, No Obsessions, No Compulsions Sensorium: Clear Cognition: Alert & Oriented-Person, Alert & Oriented-Place, Alert & Oriented- Time, Wsxqj-Fgznckpm-Jnrirvmyf Memory: Immediate, Recent, Remote Intelligence: Average Insight Judgment: Poor Lab Vital Signs Date Time Temp Pulse Resp B/P (MAP) Pulse Ox O2 Delivery O2 Flow Rate FiO2 05/01/17 08:28 98.9 70 112/77 (89) 96 Room Air 04/30/17 12:55 16 Allergies Coded Allergies No Known Drug Allergies (Unverified04/24/17) [facility] Assessment and Plan Rubq-lf-Gxqy Encounter Date: May 02, 2017 Auax-xn-Qjof Encounter Time: 10:00 [facility] Plan: Necessary Precautions, Individual/Group Therapy, Admin/Titrate Meds, Educate Patient Tobacco Medications: Not Appropriate Condition Problems: (1) Borderline personality disorder Status: Chronic (2) Persistent depressive disorder Status: Chronic (3) Suicidal ideation Status: Resolved Condition Continue current medication, treatment Emergency skilled nursing continued, awaiting 10 day hearing ROSEMARIE GUILLORY NP May 02, 2017 09:57
[2017-05-02 17:30] VITALS: BP 133/71
[2017-05-03 05:31] VITALS: BP 140/84
[2017-05-03] MEDS: VENLAFAXINE XR 75 MG CAPCR PO SCH (07:55)
[2017-05-03] MEDS: MULTIVITAMINS PO SCH (07:55)
--- NOTE | 2017-05-03 08:58 | BHS Progress Note ---
[facility] - Subjective Progress Notes Subjective "I don't think I need to be here." Patient participates with treatment although with minimal effort, denies need for hospitalization and denies that treatment benefits him No para-suicidal behavior, appetite and sleep reported sufficient Compliant with medications, denies side effects. Treatment team with Ashlee cornejo, discussion about outpatient services Suicidal Ideation: None Homicidal Ideation: None [facility] - Objective Physical Exam Muscle Strength and Tone: WNL Gait and Station: Steady [facility] Medications Reviewed: Side Effects, Benefits of Medication, Risks Allergies Reviewed: Yes Mental Status Exam General Appearance: Casual, Well Groomed, Good Eye Contact, Cooperative, Polite , Good Interaction Speech: Clear, Spontaneous, Normal Rate, Normal Rhythm, Normal Volume, Normal Tone Mood: No Dysthmic/Depressed (denies depression), Euthymic Affect: Full and Appropriate Thought Process: Organized, Logical, Goal Directed Thought Content: No Suicidal Ideation, No Homicidal Ideation, No Delusions, No Auditory Halllucinations, No Visual Hallucinations, No Thought Broadcasting, No Ideas of Reference, No Obsessions, No Compulsions Sensorium: Clear Cognition: Alert & Oriented-Person, Alert & Oriented-Place, Alert & Oriented- Time, Qetvo-Ycehakaz-Uwjgzygtx Memory: Immediate, Recent, Remote Intelligence: Average Insight Judgment: Poor Lab Vital Signs Date Time Temp Pulse Resp B/P (MAP) Pulse Ox O2 Delivery O2 Flow Rate FiO2 05/03/17 05:31 99.3 70 140/84 (102) 96 Room Air 05/02/17 17:30 16 Allergies Coded Allergies No Known Drug Allergies (Unverified04/24/17) Microbiology Continue current medication and treatment Looking towards suspended commitment Information given for DBT @ [facility], arranging for medication management appt. [facility] Assessment and Plan Ljqa-pe-Hhum Encounter Date: May 03, 2017 Zupu-qu-Jhaq Encounter Time: 09:15 [facility] Plan: Necessary Precautions, Individual/Group Therapy, Admin/Titrate Meds, Educate Patient Tobacco Medications: Not Appropriate Condition Problems: (1) Borderline personality disorder Status: Chronic (2) Persistent depressive disorder Status: Chronic (3) Suicidal ideation Status: Resolved Condition 1. Continue current medications, treatment 2. No medication changes ROSEMARIE GUILLORY NP May 03, 2017 08:58
--- NOTE | 2017-05-03 15:09 | BHS - Psychiatric Evaluation ---
Title 25 Evaluation Hearing Report: 110 Date of Report: May 03, 2017 Examiner: Myah Arellano M.S., L[facility]P.C[facility] Patient Detained By: Physician (Dr. Hines), Law Enforcement (Law Enforcement, Fercho Garcia) 24hr Mental Health Eval By: Dr Hines Date Patient Detained: Apr 24, 2017 Time Patient Detained: 06:20 Date Intermediate Expires: Apr 29, 2017 Time Intermediate Expires: 06:20 Legal Status: Police Hold: No Legal Status: Relationship: Single Legal Status: Residence: [facility] Resident Referral Source: Professional, law Enforcent Fercho Resendiz Assessment Data Provided By: Patient, Therapist Chief Complaint: Patient has been very recently hospitalized for similar presentation suicidal plans without followthrough on outpatient care. Without outpatient follow-up, patient Geraldo Reagan returns to suicidal thinking and planning to take his life. He often needs intervention of Law Enforcement to help him get to a safe , supervised environment to prevent him from further emotional deterioration. HPI/ROS: Per ER Dr. Hines, "This is a 22 year old male. He has suicidal ideation. He was going to be getting off work at about 0700 today and was going to hang himself or borrow a gun to kill himself. He sent a text to this effect and the police picked him up and have him under an emergency hold. He has been to the behavioral health unit in the past. He has history of Depression. Is not currently taking any medications. He is cooperative and knows he needs help. Denies drug or alcohol use at this time. He denies previous suicide attempts, but has been suicidal in the past. He has no current medical problems. He does not see a therapist yet, but was scheduled to see Rashid. I reviewed the police report Admit due to SI or Attempt: Yes Suicide Plan: Has Plan with Access Current Suicide Plan to hang himself or to get access to a gun and shoot himself." Reliability of Pt-Evidenced By Patient has to be taken at his word that he was suicidal, even though he states more recently, "I'm good now." On his last group home, family members communicated growing concern, saying that each successive time seems to be worse than the previous, in their opinion. It may be a pattern that patient feels temporarily stabilized here at the hospital but regresses to destabilization due to lack follow through with recommended resources when he is discharged to outpatient care. Current Dangerous Risk Assess: Protective Factors (Has a job at [employer].) Current Risk Summary: Risk summary is high related to patient's impulsiveness and inability to self- regulate. He becomes escalated and has lethal plans (planned to hang himself or to get access to a gun and shoot himself) to end his life. His suicidal statements include specific plans. He has had poor follow-through with recommended outpatient care. His tendency to become dysregulated is a concern for family members, including his brother, mother, and girlfriend who support him emotionally, but greatly fear he is at risk for taking his life. Past Dangerous Risk Assess: Suicide Ideation-last 6mo (Reports suicidal plan a little over 1 month ago.) [facility] - Exam Mental Status Exam General Appearance: Casual, Well Groomed, Good Eye Contact, Cooperative, Polite , Good Interaction Speech: Clear, Spontaneous, Normal Rate, Normal Rhythm, Normal Volume, Normal Tone Mood: No Dysthmic/Depressed (denies depression), Euthymic Affect: Full and Appropriate Thought Process: Organized, Logical, Goal Directed Thought Content: No Suicidal Ideation, No Homicidal Ideation, No Delusions, No Auditory Halllucinations, No Visual Hallucinations, No Thought Broadcasting, No Ideas of Reference, No Obsessions, No Compulsions Sensorium: Clear Cognition: Alert & Oriented-Person, Alert & Oriented-Place, Alert & Oriented- Time, Vzkwr-Vsisjtdi-Qgicpszhm Memory: Immediate, Recent, Remote Intelligence: Average Insight Judgment: Poor Title 25 History Psychiatric History: Patient, Geraldo Reagan reports that he has had suicidal thoughts on and off for the past 12 years. He denies paranoia, but says he does not trust other people. He reports that his sleep is good. His appetite is always low. He is denying suicidal thoughts today, reporting that his last suicidal thought with intent was prior to admission. Patient reports he had lost his prescription for Effexor, and never did fill it, so he has been off of medicine. He has also taken Remeron in the past, which he was started on when he was on the unit in December of 2016. However, he reportedly did not continue on that either. He denies a history of suicide attempts." Family Psychiatric Hx: Patient says his mother and brother have depression. Social History: He reports being born and raised in [place], [place]. He got his diploma through the [employer], no further education after that. His biological father and mother were never . His biological father has never really been in his life. He was essentially raised by his stepfather and his mother, who in 2011. He is currently living in [place], [place] with his fiance and their two dogs. 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 Previous Detentions: Patient detained last month. Prior Hospitalizations: Patient has had 3 hospitalizations in the last 5 months. Jan 11, 2017 March 21, 2017 April 24, 2016 Historic Psychiatric Dx: Borderline personality disorder Unspecified anxiety disorder Current Living Situation: Patient lives at physical address within [place], [place]. 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 Patient Strengths: Patient is very bright, and is able to be emotionally supportive to elderly patients. Relevant Medications: Effexor Assessment and Plan Course of Care: Necessary precautions will be implemented, especially patient is given a safe environment. The patient will participate in individual, group and milieu psychoeducation and therapy. Medications will be administered and titrated accordingly. Collateral information to be obtained as necessary. Diagnostic Impressions: Borderline personality disorder Unspecified anxiety disorder Assessment and Plan: Patient will observed and provided an individualized plan that meets his needs for personality disorder problems, suicidal thoughts, and anxiety. Risk Formulation: The patient "evidences a substantial probability of physical harm to self as manifested by evidence of recent threats of/or attempts at suicide or serious bodily harm" as evidenced by: Risk summary is high related to patient's impulsiveness and inability to self- regulate. He becomes escalated and has lethal plans (planned to hang himself or to get access to a gun and shoot himself) to end his life. His suicidal statements include specific plans. He has had poor follow-through with recommended outpatient care. His tendency to become dysregulated is a concern for family members, including his brother, mother, and girlfriend who support him emotionally, but greatly fear he is at risk for taking his life. His mother had stated she worries he could hurt other in attempt to take his own life because one of his plans for suicide was to drive his car the wrong way in traffic. Recommendations of S Team: It is therefore recommended by the Behavioral Health Services Team: Patient, Geraldo Reagan, be mandated to outpatient care in conjunction with the [facility] program. Patient's historical response to [facility] trying to connect with him has been avoidance and no follow-through with recommended care on his own behalf. Avoidance of help is quickly followed by escalated mood and plans to take his life. He has made very serious and recent statements about taking his own life on multiple occasions, and appears intent on those thoughts. As patient is mentally ill, he may not recognize the necessity of recommended followup care and support. Noncompliance with outpatient therapy, which has been previously demonstrated by patient, is potentially life threatening. If non-compliance, such as not going to therapy or taking prescribed medications, could be met with an outpatient commitment, patient may be more likely to engage within this system of stabilizing care. Failure to comply with outpatient therapy as a least restrictive environment could be an indication that a [facility] [place] is appropriate. MYAH ARELLANO LPC May 03, 2017 15:08
[2017-05-04 06:40] VITALS: BP 114/81
[2017-05-04] MEDS: MULTIVITAMINS PO SCH (08:42)
[2017-05-04] MEDS: VENLAFAXINE XR 75 MG CAPCR PO SCH (08:42)
--- NOTE | 2017-05-04 11:44 | BHS Progress Note ---
[facility] - Subjective Progress Notes Subjective Patient doing well on the unit today, interacting well, communicating a desire to attend outpatient treatment, upon discharge. Patient states medication seems helpful and does not want to change dose. Patient in some ways taking a fully active role in his treatment. No para-suicidal behavior, sleep and appetite intact. No other concerns. Suicidal Ideation: None Homicidal Ideation: None [facility] - Objective Physical Exam Vital Signs Vital Signs Date Time Temp Pulse Resp B/P (MAP) Pulse Ox O2 Delivery O2 Flow Rate FiO2 05/04/17 06:40 98.8 67 16 114/81 (92) 96 Room Air Muscle Strength and Tone: WNL Gait and Station: Steady [facility] Medications Reviewed: Side Effects, Benefits of Medication, Risks Allergies Reviewed: Yes Mental Status Exam General Appearance: Casual, Well Groomed, Good Eye Contact, Cooperative, Polite , Good Interaction Speech: Clear, Spontaneous, Normal Rate, Normal Rhythm, Normal Volume, Normal Tone Mood: No Dysthmic/Depressed (denies depression), Euthymic Affect: Full and Appropriate Thought Process: Organized, Logical, Goal Directed Thought Content: No Suicidal Ideation, No Homicidal Ideation, No Delusions, No Auditory Halllucinations, No Visual Hallucinations, No Thought Broadcasting, No Ideas of Reference, No Obsessions, No Compulsions Sensorium: Clear Cognition: Alert & Oriented-Person, Alert & Oriented-Place, Alert & Oriented- Time, Hkxso-Cgttgngf-Exnccqjgg Memory: Immediate, Recent, Remote Intelligence: Average Insight Judgment: Poor (improving some. ) [facility] Assessment and Plan Krbh-li-Krdb Encounter Date: May 04, 2017 Ctam-fw-Zleu Encounter Time: 10:00 [facility] Plan: Necessary Precautions, Individual/Group Therapy, Admin/Titrate Meds, Educate Patient Tobacco Medications: Not Appropriate Condition Problems: (1) Borderline personality disorder Status: Chronic (2) Persistent depressive disorder Status: Chronic Condition 1. continue treatment. 2. work on getting outpatient treatment contract in place. MANUEL ESTEVES MD May 04, 2017 11:44
[2017-05-04 15:57] VITALS: BP 130/71
[2017-05-05 05:48] VITALS: BP 126/79
[2017-05-05] MEDS: MULTIVITAMINS PO SCH (08:01)
[2017-05-05] MEDS: VENLAFAXINE XR 75 MG CAPCR PO SCH (08:01)
--- NOTE | 2017-05-05 10:13 | BHS Progress Note ---
[facility] - Subjective Progress Notes Subjective Patient remains cynical in nature on the unit, but interacting well today with this provider, girlfriend, brother, and treatment team staff. Patient agrees to go to outpatient treatment, but would benefit from additional court contract to do so. Will continue to address and look into this. Patient exhibiting no para-suicidal ideation and no aggression toward staff. Will continue treatment, no other concerns. Suicidal Ideation: None Homicidal Ideation: None [facility] - Objective Physical Exam Muscle Strength and Tone: WNL Gait and Station: Steady [facility] Medications Reviewed: Side Effects, Benefits of Medication, Risks Allergies Reviewed: Yes Mental Status Exam General Appearance: Casual, Well Groomed, Good Eye Contact, Cooperative, Polite , Good Interaction, No Unkept, No Tearful, No Psychomotor Agitation, No Psychomotor Retardation, No Bizarre Mannerisms, No Tics Speech: Clear, Spontaneous, Normal Rate, Normal Rhythm, Normal Volume, Normal Tone, No Delayed, No Slurred, No Garbled, No Rambling, No Inappropriate Mood: No Dysthmic/Depressed (denies depression), Euthymic Affect: Full and Appropriate, No Sad, No Withdrawn, No Tearful, No Anxious, No Agitated Thought Process: Organized, Logical, Goal Directed, No Loose Associations, No Flight of Ideas Thought Content: No Suicidal Ideation, No Homicidal Ideation, No Delusions, No Auditory Halllucinations, No Visual Hallucinations, No Thought Broadcasting, No Ideas of Reference, No Obsessions, No Compulsions Sensorium: Clear Cognition: Alert & Oriented-Person, Alert & Oriented-Place, Alert & Oriented- Time, Xqrdy-Zxyrfpgk-Bwsbupgez Memory: Immediate, Recent, Remote Intelligence: Average Insight Judgment: Poor (improving some. underlying borderline personality and associated maladaptive stress coping mechanisms. ) [facility] Assessment and Plan Ktny-ju-Anst Encounter Date: May 05, 2017 Xbwm-qy-Pmus Encounter Time: 10:00 [facility] Plan: Necessary Precautions, Individual/Group Therapy, Admin/Titrate Meds, Educate Patient Tobacco Medications: Not Appropriate Condition Problems: (1) Borderline personality disorder Status: Chronic (2) Persistent depressive disorder Status: Chronic Condition 1. continue treatment. 2. coordinate [address] for hearing. MANUEL ESTEVES MD May 05, 2017 10:13
[2017-05-05 20:20] VITALS: BP 134/68
[2017-05-06] MEDS: VENLAFAXINE XR 75 MG CAPCR PO SCH (08:06)
[2017-05-06] MEDS: MULTIVITAMINS PO SCH (08:06)
[2017-05-06 09:58] VITALS: BP 124/78
--- NOTE | 2017-05-06 13:31 | BHS Progress Note ---
[facility] - Subjective Progress Notes Subjective Patient doing well, today, and notably having agreed to outpatient treatment commitment. Patient will potentially discharge later today if paperwork is filed with court house. Sleeping good, mood good, appetite good. No other concerns today Suicidal Ideation: None Homicidal Ideation: None [facility] - Objective Physical Exam Vital Signs Vital Signs Date Time Temp Pulse Resp B/P (MAP) Pulse Ox O2 Delivery O2 Flow Rate FiO2 05/06/17 09:58 99.2 78 124/78 (93) 97 Room Air 05/04/17 06:40 16 Muscle Strength and Tone: WNL Gait and Station: Steady [facility] Medications Reviewed: Side Effects, Benefits of Medication, Risks Allergies Reviewed: Yes Mental Status Exam General Appearance: Casual, Well Groomed, Good Eye Contact, Cooperative, Polite , Good Interaction, No Unkept, No Tearful, No Psychomotor Agitation, No Psychomotor Retardation, No Bizarre Mannerisms, No Tics Speech: Clear, Spontaneous, Normal Rate, Normal Rhythm, Normal Volume, Normal Tone, No Delayed, No Slurred, No Garbled, No Rambling, No Inappropriate Mood: Euthymic Affect: Full and Appropriate, No Sad, No Withdrawn, No Tearful, No Anxious, No Agitated Thought Process: Organized, Logical, Goal Directed, No Loose Associations, No Flight of Ideas Thought Content: No Suicidal Ideation, No Homicidal Ideation, No Delusions, No Auditory Halllucinations, No Visual Hallucinations, No Thought Broadcasting, No Ideas of Reference, No Obsessions, No Compulsions Sensorium: Clear Cognition: Alert & Oriented-Person, Alert & Oriented-Place, Alert & Oriented- Time, Qcrsh-Enrdhhxe-Uahdtzxhr Memory: Immediate, Recent, Remote Intelligence: Average Insight Judgment: Poor (improving some. underlying borderline personality and associated maladaptive stress coping mechanisms. ) [facility] Assessment and Plan Dsxg-qx-Gfml Encounter Date: May 06, 2017 Fzjs-wr-Npod Encounter Time: 13:00 [facility] Plan: Necessary Precautions, Individual/Group Therapy, Admin/Titrate Meds, Educate Patient Tobacco Medications: Not Appropriate Condition Problems: (1) Borderline personality disorder Status: Chronic (2) Persistent depressive disorder Status: Chronic Condition 1. continue treatment. 2. await [address] filing. 3. plan for discharge MANUEL ESTEVES MD May 06, 2017 13:31
[2017-05-06] MEDS ORDERED: VENL75CA58 PO (14:25)
[2017-05-06] MEDS ORDERED: MULT-1379 PO (14:26)
--- NOTE | 2017-05-07 20:49 | DISCHARGE SUMMARY ---
DATE OF ADMISSION April 24, 2017 DATE OF DISCHARGE May 06, 2017 FINAL DIAGNOSES PER DSM-V Borderline personality disorder. Anxiety disorder unspecified. This patient was seen for this discharge note in the a.m. of May 06, 2017 at approximately 0900 hours. REASON FOR ADMISSION Please see history and physical. This patient has had a recurrent string of admissions and suffers from borderline personality disorder and anxiety disorder unspecified. Patient was notably on the unit in December 2016, then in March 2017, then returning under very similar circumstances again in early April 2017. Patient was verbalizing suicidal ideation with no attempt. Patient again very resistant early on in his care on the unit, however, due to patient's recurrent suicidal ideations and failure to make it to any outpatient treatment, orders were done through the court system to have the patient on an outpatient commitment in lieu of going to the [facility]. Patient compliant with this and eventually taking some active role in his treatment, and patient refraining from suicidal behaviors on the unit. Patient's mood improved, suicidal ideation in remission, again patient agreeing to outpatient treatment and signing contract to do so. Patient discharged to home. PHYSICAL EXAMINATION GENERAL: Please see emergency room note. Notable for a 22-year-old male in no acute distress. VITAL SIGNS: At the time of admission, temperature 99.3, pulse 89, respiratory rate 12, blood pressure 149/96, pulse oximetry 94 on room air. At the time of discharge from Behavioral Health Unit vital signs showed a temperature of 99.2, pulse 78, respiratory rate 16, blood pressure 124/78 and pulse oximetry 97 on room air. LABORATORY DATA At the time of admission CBC overall unremarkable. Please see electronic record. CMP unremarkable. TSH 2.89. Urinalysis unremarkable overall. Toxicology screen negative with a nondetectable serum alcohol level. MENTAL STATUS EXAMINATION AT THE TIME OF DISCHARGE GENERAL APPEARANCE, BEHAVIOR AND ATTITUDE: This is a cooperative, well-groomed 22-year-old male, appearing somewhat older than stated age. No psychomotor agitation or retardation. No bizarre mannerisms or tics. Patient making good eye contact, nontearful, smiling at this provider. SPEECH: Within normal limits, regular rate, rhythm volume and tone. MOOD: Described as okay. AFFECT: Variable and overall mood congruent. THOUGHT PROCESSES: Logical, goal directed. No loose associations or flight of ideas. THOUGHT CONTENT: Free of auditory or visual hallucinations, ideas of reference , thought broadcastings, delusions, obsessions, compulsions. Patient adamantly denying suicidal or homicidal ideation. SENSORIUM: Clear. COGNITION: Alert and oriented to person, place, time and situation. MEMORY: Immediate, recent and remote estimated intact. INTELLIGENCE: Average to above based on multiple interviews. INSIGHT AND JUDGMENT: Limited by borderline personality and associated maladaptive stress coping mechanisms. However, appropriate for ongoing outpatient treatment in the absence of drug use. RESULTS OF TESTING IMAGING: None. LABORATORY DATA: See above. CONSULTATIONS: None. TREATMENT Patient received medications, participated in individual and group therapy. HOSPITAL COURSE Throughout patient's stay, patient becoming more cooperative on a daily basis. Patient taking somewhat of a fully active role in his treatment by the time of discharge. Patient remained on Effexor XR 75 mg q.a.m. and did participate in therapy. Multivitamin with minerals daily as well. CONDITION OF PATIENT ON DISCHARGE Stable. Considered minimal risk to himself or others and appropriate for outpatient care. DISPOSITION Patient was discharged to outpatient care under a court contract. Patient agreed to maintain contact with [facility] program. Crisis line was given should symptoms return. Patient agreed to continue Effexor XR 75 mg q.a.m., multivitamin with minerals daily, and avoid alcohol or substance use. Risks, benefits and alternatives of the above discharge plan were discussed. Informed consent was given to proceed with above discharge plan by this patient and patient's adult girlfriend present at the time of discharge as well. [facility]
== END 2017-05-06 14:57 | disposition home or self-care (01) | DRG 883 ==
LOC: BHS 08:19
PROVIDERS: ADMIT Registered Nurse Psychiatric/Mental Health, Adult; ATTEND Registered Nurse Psychiatric/Mental Health, Adult
DX: F60.3 Borderline personality disorder (principal); R45.851 Suicidal ideations; F34.1 Dysthymic disorder; F41.8 Other specified anxiety disorders; Z91.5 Personal history of self-harm; Z81.8 Family history of other mental and behavioral disorders
CPT/HCPCS: 90853